=== PATIENT | female | born 2000 | race Caucasian/White ===

== ENCOUNTER 2022-05-17 01:44 | Emergency (ER) | payer SELFPAY ==
[2022-05-17 02:02] VITALS: BP 102/66; PULSE 84; RESP 18; TEMP 36.8; O2SAT 99; BMI 19.8
--- NOTE | 2022-05-17 02:42 | CRLHL7_ITS ---
For Patients: As a result of the Century Cures Act, medical imaging exams and procedure reports are released immediately into your electronic medical record. You may view this report before your referring provider. If you have questions, please contact your health care provider. INDICATION: Abdominal pain. COMPARISON: None available. TECHNIQUE: CT examination of the abdomen and pelvis was performed with the uneventful intravenous administration of 64 cc of Isovue 370 while 3 mm thick axial sections were obtained from the lung bases through the pubic symphysis. Oral contrast was not administered. Please note that all CT scans at this facility use dose modulation, iterative reconstruction, and/or weight-based dosing when appropriate to reduce radiation dose to as low as reasonably achievable. FINDINGS: In the abdomen, the liver, spleen, pancreas, and adrenals are normal in appearance. The kidneys are normal in appearance. The gallbladder is normal in appearance. The abdominal aorta is normal in caliber with no sign of dilatation. There is no sign of retroperitoneal mass or adenopathy. The stomach, loops of small bowel, and colon in the abdomen are normal in appearance. In the pelvis, the appendix is normal in appearance with no sign of inflammatory process. The loops of small bowel, colon, and rectum in the pelvis are normal in appearance. The uterus and adnexal regions are normal in appearance. There is a small amount of free fluid in the cul-de-sac, nonspecific. The urinary bladder is normal in appearance. There is no sign of pelvic or inguinal mass or adenopathy. There is no sign of free air or free fluid in the abdomen. There is no sign of free air or extraluminal air in the pelvis. The lung bases are clear. The osseous structures are normal in appearance for the patient`s age. IMPRESSION: Nothing seen to explain the patient`s abdominal pain. No sign of any inflammatory process involving the bowel. No sign of bowel distention. No sign of pancreatitis. Normal CT of the abdomen with contrast. CT of the pelvis shows a small amount of free fluid in the cul-de-sac, nonspecific. Please note that all CT scans at this facility use dose modulation, iterative reconstruction, and/or weight-based dosing when appropriate to reduce radiation dose to as low as reasonably achievable. Dictated by Juan José Garcia MD @ 05/17/2022 3:53:07 AM (Electronically Signed)
[2022-05-17 02:56] LABS: Basophils Absolute Auto 0.04 K/uL (0.00-0.30); Basophils Percent Auto 0.5 % (0.0-3.0); Eosinophils Absolute Auto 0.13 K/uL (0.00-0.50); Eosinophils Percent Auto 1.6 % (0.0-7.0); Hematocrit 30.1 % (33.0-51.0); Hemoglobin* 9.3 gm/dL (12.0-16.0); Immature Granulocytes Abs Auto 0.09 K/uL (0.00-0.30); Immature Granulocytes Pct Auto 1.1 %; Lymphocytes Absolute Auto 2.33 K/uL (0.90-2.90); Lymphocytes Percent Auto 28.6 % (20-44); Mean Corpuscular HGB Conc 31 gm/dL (32-36); Mean Corpuscular Hemoglobin 25 pg (26-34); Mean Corpuscular Volume 80 fL (80-100); Monocytes Percent Auto 7.5 % (0.0-11.0); Neutrophils Absolute Auto 4.96 K/uL (1.7-7.0); Neutrophils Percent Auto 60.7 % (42.0-72.0); Platelet Count* 287 K/uL (140-440); RDW Coefficient of Variation % 14.6 % (11.5-15.5); Red Blood Count 3.76 m/uL (4.00-5.20); White Blood Count* 8.16 K/uL (4.50-11.00)
[2022-05-17 02:59] LABS: Mono Screen* Negative (Negative)
[2022-05-17 03:00] LABS: Slide Review Reflex No
[2022-05-17 03:08] LABS: Albumin* 4.4 g/dL (3.3-5.0); Chloride* 107 mmol/L (96-114); Sodium* 139 mmol/L (135-149)
[2022-05-17 03:09] LABS: Potassium* 3.7 mmol/L (3.6-5.1)
[2022-05-17 03:11] LABS: Alkaline Phosphatase* 55 U/L (40-150); Aspartate Amino Transferase* 45 U/L (12-35); Bilirubin Total* 0.3 mg/dL (0.1-1.5); Blood Urea Nitrogen* 7 mg/dL (5-24); Carbon Dioxide* 22 mmol/L (20-32); Creatinine* 0.5 mg/dL (0.5-1.5); Est. Creatinine Clearance* 164.29; Estimated Glomerular Filt Rate 136 ml/min; Glucose* 100 mg/dL (60-115); Total Protein* 7.7 g/dL (6.0-8.3)
[2022-05-17 03:12] LABS: Alanine Aminotransferase* 44 U/L (4-35); Calcium* 8.5 mg/dL (8.4-10.6)
[2022-05-17 03:22] LABS: Appearance Urine Clear (Clear); Bilirubin Urine Negative (Negative); Blood Urine Negative (Negative); Color Urine Yellow (Yellow); Glucose Urine Negative (Negative); Ketones Urine Negative (Negative); Leukocyte Esterase Urine Negative (Negative); Nitrite Urine Negative (Negative); Protein Urine Negative (Negative); Urobilinogen Urine 0.2 (0.2-1.0); pH Urine 5.5 (5.0-8.5)
--- NOTE | 2022-05-17 03:48 | ED_ITS ---
HPI - General Adult General Date Seen: 05/17/22 Chief complaint: Abdominal Pain Stated complaint: chest and lower back pain. Time Seen by Provider: 05/17/22 02:01 Source: patient Mode of arrival: ambulatory Limitations: no limitations History of Present Illness HPI narrative: Patient is a 22-year-old female who recently finished a course of Omnicef for strep pharyngitis who presents with about 24 hours of flank and abdominal pain. This began in her right flank and radiated around to her right upper quadrant and is now more localized to her left upper quadrant. There has been some alli sea but no vomiting. No dysuria, urgency, frequency. She has had some loose stools for the past 24-48 hours. Nothing black or bloody. No acid reflux. She felt worse after eating some pasta this evening. No fevers or chills. She is just getting over her period. Related Data Home Medications Medication Instructions Recorded Confirmed No Known Home Medications 05/17/22 05/17/22 Allergies Allergy/AdvReac Type Severity Reaction Status Date / Time amoxicillin Allergy Intermediate Hives Verified 05/17/22 03:17 Review of Systems Narrative: Review of systems is outlined above otherwise noted to be negative. [facility] Medical History (Updated 05/17/22 @ 03:57 by Tanner Davis MD) Anxiety ?F41.9 - Anxiety disorder, unspecified (ICD-10) Depression ?F32.A - Depression, unspecified (ICD-10) Surgical History (Updated 05/17/22 @ 03:09 by John León RN) No significant past surgical history Social History Smoking Status: Never smoker Second hand tobacco smoke exposure: No How often do you have a drink containing alcohol: never How often do you have six or more drinks on one occasion: Never AUDIT-C Alcohol total score: 0 Non-prescribed substance use: denies use Exam Narrative: Exam Narrative: Vitals noted. HEENT: Conjunctiva clear. Tympanic membranes are pearly white bilaterally. Posterior pharynx is clear without erythema or exudate. Neck is supple without adenopathy, thyromegaly, carotid bruit. Lungs: Clear to auscultation in all veliz. No wheezes, rales, rhonchi. Heart: Regular rate and rhythm without murmur. Abdomen: Soft with no guarding, rigidity, rebound. Bowel sounds are normal. No palpable masses. There is very mild tenderness in the right lower quadrant and left upper quadrant. Extremities: No cyanosis or edema. Good distal pulses. Skin: No abnormalities noted of the exposed skin. Neurologic: Awake, alert, fully oriented. Neurologic exam is nonfocal. Const: Vital Signs, click to edit/add: Vital Signs - 24 hr 05/17/22 02:02 Temperature 98.2 F Pulse Rate [Right Pulse Oximeter] 84 Respiratory Rate 18 Blood Pressure [Ri ght Upper Arm] 102/66 Pulse Oximetry 99 Oxygen Delivery Me thod Room Air Course Course Hospital Course: Patient is seen and examined. Labs and CT of her abdomen and pelvis are ordered. She declines a need for pain medication. Reevaluation(s) Reevaluation #1: Her labs have all returned. Urinalysis is normal. Monospot negative. AST and ALT are minimally elevated. The remainder of her LFTs are normal. Basic metabolic panel is normal. CBC shows a hemoglobin of 9.3 with an MCV of 80 consistent with an iron deficiency anemia. She tells me that her periods are very heavy. She is not sexually active but she would be interested in OCPs to help light her menstrual flow. She can discuss that with Dr. Sampson. CT of the abdomen and pelvis is completely unremarkable. Vital Signs Vital signs: Initial Vital Signs Temperature 98.2 F 05/17/22 02:02 Temperature Source Temporal Artery Scan 05/17/22 02:02 Pulse Rate 84 05/17/22 02:02 Respiratory Rate 18 05/17/22 02:02 Blood Pressure 102/66 05/17/22 02:02 Blood Pressure Mean 78 05/17/22 02:02 Blood Pressure Position Sitting 05/17/22 02:02 Pulse Oximetry 99 05/17/22 02:02 Oxygen Delivery Method Room Air 05/17/22 02:02 Vital Signs Temperature 98.2 F 05/17/22 02:02 Pulse Rate 84 05/17/22 02:02 Respiratory Rate 18 05/17/22 02:02 Blood Pressure 102/66 05/17/22 02:02 Pulse Oximetry 99 05/17/22 02:02 Oxygen Delivery Method Room Air 05/17/22 02:02 Temperature 98.2 F 05/17/22 02:02 Pulse Rate 84 05/17/22 02:02 Respiratory Rate 18 05/17/22 02:02 Blood Pressure 102/66 05/17/22 02:02 Pulse Oximetry 99 05/17/22 02:02 Oxygen Delivery Method Room Air 05/17/22 02:02 Medical Decision Making Lab Data Labs: Lab Results 05/17/22 05/17/22 Range/Units 02:07 02:50 WBC 8.16 (4.50-11.00) K/uL RBC 3.76 L (4.00-5.20) m/uL Hgb 9.3 L (12.0-16.0) gm/dL Hct 30.1 L (33.0-51.0) % MCV 80 (80-100) fL MCH 25 L (26-34) pg MCHC 31 L (32-36) gm/dL RDW Coeff of Thomas 14.6 (11.5-15.5) % Plt Count 287 (140-440) K/uL Neut % (Auto) 60.7 (42.0-72.0) % Lymph % (Auto) 28.6 (20-44) % [place] % (Auto) 7.5 (0.0-11.0) % Eos % (Auto) 1.6 (0.0-7.0) % Baso % (Auto) 0.5 (0.0-3.0) % Neut # (Auto) 4.96 (1.7-7.0) K/uL Lymph # (Auto) 2.33 (0.90-2.90) K/uL Marion # (Auto) 0.60 (0.00-0.90) K/UL Eos # (Auto) 0.13 (0.00-0.50) K/uL Baso # (Auto) 0.04 (0.00-0.30) K/uL Sodium 139 (135-149) mmol/L Potassium 3.7 (3.6-5.1) mmol/L Chloride 107 (96-114) mmol/L Carbon Dioxide 22 (20-32) mmol/L BUN 7 (5-24) mg/dL Creatinine 0.5 (0.5-1.5) mg/dL Estimated Creat Clear 164.29 Estimated GFR 136 ml/min Glucose 100 (60-115) mg/dL Calcium 8.5 (8.4-10.6) mg/dL Total Bilirubin 0.3 (0.1-1.5) mg/dL Direct Bilirubin 0.0 (0.0-0.5) mg/dL AST 45 H (12-35) U/L ALT 44 H (4-35) U/L Alkaline Phosphatase 55 (40-150) U/L Total Protein 7.7 (6.0-8.3) g/dL Albumin 4.4 (3.3-5.0) g/dL Urine Color Yellow (Yellow) Urine Appearance Clear (Clear) Urine pH 5.5 (5.0-8.5) Ur Specific [place] 1.020 (1.000-1.030) Urine Protein Negative (Negative) Urine Glucose (UA) Negative (Negative) Urine Ketones Negative (Negative) Urine Blood Negative (Negative) Urine Nitrite Negative (Negative) Urine Bilirubin Negative (Negative) Urine Urobilinogen 0.2 (0.2-1.0) Ur Leukocyte Esterase Negative (Negative) Monoscreen Negative (Negative) Discharge Plan Discharge Clinical Impression: Iron deficiency anemia, Abdominal pain Patient Disposition: Home, Self-Care Condition: Stable Additional Instructions: Start taking rbcd-zog-yblzdin iron supplement. Follow-up with your PCP in one month to have that rechecked. Consider starting control pill to help lighten your menstrual flow. Use Tylenol for your abdominal pain. Follow a bland diet until the diarrhea resolves. If abdominal pain does not improve please follow-up in the clinic. Prescriptions: No Action No Known Home Medications Follow Up/Referrals: Danielle Sampson PA-C [Primary Care Provider] - Stand Alone Forms: [employer] Info Instructions
[2022-05-17 04:07] VITALS: BP 112/85; PULSE 79; RESP 18; TEMP 36.9; O2SAT 99
[2022-05-17 04:15] VITALS: BP 112/85; PULSE 79; RESP 18; TEMP 36.9
== END 2022-05-17 04:16 | disposition home or self-care (01) ==
PROVIDERS: Emergency Provider Family Medicine; PCP Physician Assistant
DX: R10.9 Unspecified abdominal pain (principal); D50.9 Iron deficiency anemia, unspecified
CPT/HCPCS: 36415; 74177; 80048; 80076; 81003; 85025; 86308; 99283; 99284; Q9967

== ENCOUNTER 2022-10-19 21:04 | Emergency (ER) | payer MEDICAID, SELFPAY ==
[2022-10-19 21:13] VITALS: BP 105/67; PULSE 80; RESP 18; TEMP 35.6; O2SAT 100; BMI 19.8
--- NOTE | 2022-10-19 21:36 | ED.GENADULT ---
HPI - General Adult General Chief complaint: Nausea/Vomiting Stated complaint: can't keep anything down Time Seen by Provider: 10/19/22 21:36 History of Present Illness HPI narrative: Pt 16.5 weeks . LMP 07/06/22. Pt c/ o vomiting, nausea, headache, and swollen gums since 10/14/22. Pt states yesterday was the first day in five days she didn't vomit, but now states she again can't keep anything down. Has not tested for COVID, states I would still leave my house . First . 22-year-old young woman presenting to the emergency department with vomiting in . One week nausea and vomiting. Some abdominal pain. History of headaches; does not sound as though migraines have been formally diagnosed. Mom with history of migraines. They have been treating with acetaminophen. No fever. No dysuria. No fever. No shortness of breath. No bleeding. Has not yet had 1st OB. Related Data Home Medications Medication Instructions Recorded Confirmed PNV #[id number] acid-omega3 PO 10/19/22 docosahexaenoic acid PO 10/19/22 Allergies Allergy/AdvReac Type Severity Reaction Status Date / Time amoxicillin Allergy Intermediate Hives Verified 10/19/22 21:20 Review of Systems Status of ROS: Reports: 6 or more systems reviewed and unremarkable except as noted in History and below [facility] Medical History Menorrhagia ?N92.0 - Excessive and frequent menstruation with regular cycle (ICD-10) Iron deficiency anemia ?D50.9 - Iron deficiency anemia, unspecified (ICD-10) Anxiety ?F41.9 - Anxiety disorder, unspecified (ICD-10) Depression ?F32.A - Depression, unspecified (ICD-10) Surgical History No significant past surgical history Social History Smoking Status: Former smoker Do you use any of these nicotine containing products: E-Cigarettes and Vaping Products Second hand tobacco smoke exposure: No How often do you have a drink containing alcohol: never How often do you have six or more drinks on one occasion: Never AUDIT-C Alcohol total score: 0 Non-prescribed substance use: denies use Exam Narrative: Exam Narrative: Tall. Pleasant. Seems uncomfortable. Breathing easily. Lungs are clear. Lips are little dry. Heart in regular rate and rhythm. Abdomen is soft. No flank pain Sore mid low abdomen. Places her hand often at the back of her neck as if uncomfortable. Const: Vital Signs, click to edit/add: Vital Signs - 24 hr 10/19/22 21:13 10/20/22 00:36 Temperature 96.0 F L Pulse Rate [Pulse Oximeter] 80 94 Respiratory Rate 18 16 Blood Pressure [Ri ght Upper Arm] 105/67 98/57 L Pulse Oximetry 100 100 Oxygen Delivery Me thod Room Air Room Air Documenting provider has reviewed patient's vital signs: yes Course Vital Signs Vital signs: Initial Vital Signs Temperature 96.0 F L 10/19/22 21:13 Temperature Source Temporal Artery Scan 10/19/22 21:13 Pulse Rate 80 10/19/22 21:13 Respiratory Rate 18 10/19/22 21:13 Blood Pressure 105/67 10/19/22 21:13 Blood Pressure Mean 79 10/19/22 21:13 Blood Pressure Position Sitting 10/19/22 21:13 Pulse Oximetry 100 10/19/22 21:13 Oxygen Delivery Method Room Air 10/19/22 21:13 Vital Signs Temperature 96.0 F L 10/19/22 21:13 Pulse Rate 80 10/19/22 21:13 Respiratory Rate 18 10/19/22 21:13 Blood Pressure 105/67 10/19/22 21:13 Pulse Oximetry 100 10/19/22 21:13 Oxygen Delivery Method Room Air 10/19/22 21:13 Temperature 96.0 F L 10/19/22 21:13 Pulse Rate 94 10/20/22 00:36 Respiratory Rate 16 10/20/22 00:36 Blood Pressure 98/57 L 10/20/22 00:36 Pulse Oximetry 100 10/20/22 00:36 Oxygen Delivery Method Room Air 10/20/22 00:36 Medical Decision Making MDM Narrative Medical decision making narrative: Ideally placed. Will be receiving IV hydration. Will try to treat her headache. Urinalysis. No particular exposures to infectious gastritis have been described. Presuming dehydration. Given Zofran and fluids. Improved but headache remain. Further treated with 4 mg of morphine after discussion. Further improvement in symptoms. [place] could apart. Urinalysis with findings consistent of infection. At least more so than I typically would see in . I will be treating for this as well. Pending urine culture. See patient discharge plan Lab Data Lab results reviewed: Yes I reviewed the patient's lab results Labs: Lab Results 10/19/22 Range/Units 22:04 Urine Color Yellow (Yellow) Urine Appearance Cloudy A (Clear) Urine pH 7.0 (5.0-8.5) Ur Specific [place] 1.020 (1.000-1.030) Urine Protein Negative (Negative) Urine Glucose (UA) Negative (Negative) Urine Ketones Negative (Negative) Urine Blood Trace-intact A (Negative) Urine Nitrite Negative (Negative) Urine Bilirubin Negative (Negative) Urine Urobilinogen 0.2 (0.2-1.0) Ur Leukocyte Esterase 1+ A (Negative) Urine RBC 0-2 (0-2) Urine WBC 25-50 A (0-5) Ur Squamous Epith Cells Moderate A (None-Few) Amorphous Sediment Few A (None) Urine Bacteria Moderate A (None) Discharge Plan Discharge Clinical Impression: UTI (urinary tract infection), Headache, Vomiting during , Dehydration Patient Disposition: Home w/ Parent or Adult Condition: Improved Additional Instructions: Really focus on hydration. A urine culture will be pending here for confirmation. Zofran and cephalexin from [facility] Otherwise follow-up appointment as scheduled. Prescriptions: No Action docosahexaenoic acid [ DHA] PO PNV #[id number] acid-omega3 PO Follow Up/Referrals: Danielle Sampson PA-C [Primary Care Provider] - Stand Alone Forms: [facility] Info Instructions
[2022-10-19] MEDS: ONDANSETRON 2 MG/ML inj 4 MG IVP (21:45)
[2022-10-19] MEDS: 0.9 % SODIUM CHLORIDE 1000 ml 1,000 ML IV (21:45)
[2022-10-19 22:28] LABS: Appearance Urine Cloudy (Clear); Bilirubin Urine Negative (Negative); Blood Urine Trace-intact (Negative); Color Urine Yellow (Yellow); Glucose Urine Negative (Negative); Ketones Urine Negative (Negative); Leukocyte Esterase Urine 1+ (Negative); Nitrite Urine Negative (Negative); Protein Urine Negative (Negative); Urobilinogen Urine 0.2 (0.2-1.0)
[2022-10-19 22:29] LABS: Amorphous Sediment Urine Few; Bacteria Urine Moderate; RBC Urine 0-2 (0-2); Squamous Epithelial Cell Urine Moderate (None-Few); WBC Urine 25-50 (0-5)
[2022-10-20] MEDS: MORPHINE 4 MG/ML INJ IVP (00:33)
[2022-10-20 00:36] VITALS: BP 98/57; PULSE 94; RESP 16; O2SAT 100
== END 2022-10-20 00:54 | disposition home or self-care (01) ==
PROVIDERS: Emergency Provider Family Medicine; PCP Physician Assistant
DX: O23.41 Unspecified infection of urinary tract in pregnancy, first trimester (principal); O21.9 Vomiting of pregnancy, unspecified; N39.0 Urinary tract infection, site not specified; E86.0 Dehydration; R51.9 Headache, unspecified
CPT/HCPCS: 81001; 87086; 96361; 96374; 96375; 99284; J2270; J2405; J7030

== ENCOUNTER 2022-11-11 12:08 | Outpatient (CLI) | payer MEDICAID, SELFPAY ==
--- NOTE | 2022-11-11 12:15 | CRLHL7_ITS ---
For Patients: As a result of the Century Cures Act, medical imaging exams and procedure reports are released immediately into your electronic medical record. You may view this report before your referring provider. If you have questions, please contact your health care provider. INDICATION: First trimester scan, establish dates. COMPARISON: None. TECHNIQUE: Real-time santiago-scale imaging of the pelvis was performed. FINDINGS: A single living intrauterine . heart rate 157 beats per minute. Vertex position. Cervix closed measuring 3.2 cm. Placenta anterior. BPD 88th percentile. HC 69th percentile. AC 83rd percentile. FL 58th percentile. IMPRESSION: Single living intrauterine with sonographic gestational age 18 weeks 4 days and sonographic due date 04/10/2023. Dictated by Tanner Owens MD @ 11/11/2022 3:20:36 PM (Electronically Signed)
== END 2022-11-11 12:09 | disposition home or self-care (01) ==
LOC: US 12:09
PROVIDERS: Visit Provider Advanced Practice Midwife
DX: Z34.92 Encounter for supervision of normal pregnancy, unspecified, second trimester (principal); Z3A.18 18 weeks gestation of pregnancy
CPT/HCPCS: 76815; 86703; 86706; 86803; 86850; 86900; 86901; 87086; 87340

== ENCOUNTER 2022-11-11 13:10 | Outpatient (CLI) | payer MEDICAID, SELFPAY | END 2022-11-11 13:11 | disposition home or self-care (01) | PROVIDERS: Visit Provider Advanced Practice Midwife | DX: Z34.92 Encounter for supervision of normal pregnancy, unspecified, second trimester (principal); Z3A.18 18 weeks gestation of pregnancy | CPT/HCPCS: 76815; 86592; 86703; 86704; 86706; 86762; 86787; 86803; 86850; 86900; 86901; 87086; 87340 ==

== ENCOUNTER 2022-11-25 12:55 | Outpatient (CLI) | payer MEDICAID, SELFPAY ==
--- NOTE | 2022-11-25 13:00 | CRLHL7_ITS ---
For Patients: As a result of the Century Cures Act, medical imaging exams and procedure reports are released immediately into your electronic medical record. You may view this report before your referring provider. If you have questions, please contact your health care provider. INDICATION: Evaluate anatomy. COMPARISON: 11/11/2022 TECHNIQUE: Real time santiago scale imaging of the fetus was performed as well as color Doppler analysis of the umbilical vessels. FINDINGS: Sonographic imaging demonstrates a single living intrauterine gestation. Fetus demonstrates a regular cardiac rate of 145 beats per minute. Fetus has a vertex position. The placenta lies anteriorly without evidence of placenta previa. The edge of the placenta is located 12.7 cm from the internal cervical os. Amniotic fluid volume appears normal. Single deepest vertical pocket: 3.8 cm. The cervix is closed and measures 3.5 cm in length. The composite ultrasound gestational age is calculated at 20 weeks 4 days with an estimated sonographic due date of 04/10/2023. The estimated weight is 343 grams which lies at the 44th %. The following biometric measurements were obtained: Biparietal diameter: 5.0 cm/21 weeks 0 days 77th% Head circumference: 17.9 cm/20 weeks 2 days 43rd% Abdominal circumference: 15.2 cm/20 weeks 3 days 47th% Femur length: 3.2 cm/20 weeks 0 days 33rd% The HC/AC ratio measures: 1.18 range (1.07-1.25) On anatomic survey, there is a normal appearance of the cerebral ventricles, cavum septi pellucidi, cisterna magna and cerebellum. The nose, lips, and facial profile appear normal. The cervical, thoracic and lumbar spine are well visualized and appear normal. There is a normal four-chamber heart view and the left and right ventricular outflow tracts appear normal. The diaphragm and stomach appear normal. The kidneys and bladder also appear normal. There is a normal three-vessel cord. The cord insertion site is located 1.6 cm from the placental edge. The four extremities appear normal. IMPRESSION: Concordance of clinical and sonographic dating. No intrinsic abnormalities noted on anatomic survey. Marginal placental cord insertion 1.6 cm from the placental edge. Dictated by Tanner Owens MD @ 11/27/2022 6:17:32 AM (Electronically Signed)
== END 2022-11-25 12:56 | disposition home or self-care (01) ==
LOC: US 12:57
PROVIDERS: Visit Provider Advanced Practice Midwife
DX: Z36.89 Encounter for other specified antenatal screening (principal); Z34.92 Encounter for supervision of normal pregnancy, unspecified, second trimester; Z3A.20 20 weeks gestation of pregnancy
CPT/HCPCS: 76805

== ENCOUNTER 2023-01-20 11:10 | Outpatient (CLI) | payer MEDICAID, SELFPAY | END 2023-01-20 11:11 | disposition home or self-care (01) | PROVIDERS: Visit Provider Advanced Practice Midwife | DX: O99.019 Anemia complicating pregnancy, unspecified trimester (principal) | CPT/HCPCS: 82728; 86592; 86850 ==

== ENCOUNTER 2023-02-07 10:00 | Outpatient (RCR) | payer MEDICAID, SELFPAY ==
--- NOTE | 2023-01-24 13:24 | URNOTE ---
Per [facility] on [facility] website, prior authorization is not required for Martin ([id number]).
[2023-01-29 11:36] VITALS: BP 100/51; PULSE 114; RESP 16; TEMP 36.7; O2SAT 98
[2023-01-29] MEDS: SODIUM CHLORIDE 0.9 % (FLUSH) 10 ML SYRINGE IVF (12:00)
[2023-01-29] MEDS: 0.9 % SODIUM CHLORIDE 250 ml IV (12:00)
[2023-01-29] MEDS: IRON SUCROSE COMPLEX 200 MG in 0.9 % SODIUM CHLORIDE 100 ml 440 MG IVPB (12:30)
[2023-01-29 12:49] VITALS: BP 89/59; PULSE 96; RESP 16; TEMP 36.4; O2SAT 96
[2023-01-29 13:00] VITALS: BP 93/59
[2023-01-31 14:25] VITALS: BP 96/63; PULSE 104; RESP 16; TEMP 36.9; O2SAT 97
[2023-01-31] MEDS: IRON SUCROSE COMPLEX 200 MG in 0.9 % SODIUM CHLORIDE 100 ml 440 MG IVPB (14:55)
[2023-01-31 15:15] VITALS: BP 94/65; PULSE 89; RESP 16; TEMP 36.8; O2SAT 98
[2023-01-31] MEDS: 0.9 % SODIUM CHLORIDE 250 ml IV (15:27)
[2023-01-31 15:45] VITALS: BP 95/67; PULSE 88; RESP 18; TEMP 36.7; O2SAT 98
[2023-02-03 11:26] VITALS: BP 93/62; PULSE 81; RESP 16; TEMP 36.2
[2023-02-03] MEDS: SODIUM CHLORIDE 0.9 % (FLUSH) 10 ML SYRINGE IVF (11:44)
[2023-02-03] MEDS: IRON SUCROSE COMPLEX 200 MG in 0.9 % SODIUM CHLORIDE 100 ml 440 MG IVPB (11:44)
[2023-02-03] MEDS: 0.9 % SODIUM CHLORIDE 250 ml IV (11:44)
[2023-02-05 08:05] VITALS: BP 104/69; PULSE 100; RESP 16; TEMP 36.4; O2SAT 100
[2023-02-05] MEDS: IRON SUCROSE COMPLEX 200 MG in 0.9 % SODIUM CHLORIDE 100 ml 440 MG IVPB (08:25)
[2023-02-05] MEDS: SODIUM CHLORIDE 0.9 % (FLUSH) 10 ML SYRINGE IVF (08:25)
[2023-02-05] MEDS: 0.9 % SODIUM CHLORIDE 250 ml IV (08:25)
[2023-02-07 10:11] VITALS: BP 99/67; PULSE 86; RESP 16; TEMP 36.3; O2SAT 100
[2023-02-07] MEDS: IRON SUCROSE COMPLEX 200 MG in 0.9 % SODIUM CHLORIDE 100 ml 440 MG IVPB (10:35)
[2023-02-07] MEDS: 0.9 % SODIUM CHLORIDE 250 ml IV (10:35)
[2023-02-07 10:53] VITALS: BP 96/60; PULSE 86; RESP 16; TEMP 36.8; O2SAT 100
[2023-02-07 11:25] VITALS: BP 104/66; PULSE 93; RESP 16; TEMP 36.7; O2SAT 98
== END 2023-07-28 23:59 | disposition home or self-care (01) ==
LOC: CCIC 10:00
PROVIDERS: Visit Provider Clinical Nurse Specialist
DX: O99.019 Anemia complicating pregnancy, unspecified trimester (principal)
CPT/HCPCS: 96365; 96374; J1756; J7050

== ENCOUNTER 2023-02-18 15:00 | Outpatient (CLI) | payer BC, SELFPAY ==
[2023-02-18] VITALS (7 sets, daily range): BP systolic 90–99; BP diastolic 50–62; PULSE 74–109; RESP 16–22; TEMP 36.6–36.9; O2SAT 97–100; BMI 23.1
--- NOTE | 2023-02-18 17:09 | ED.GENADULT ---
HPI - General Adult General Date Seen: 02/18/23 Chief complaint: Abdominal Pain Stated complaint: Lower abdominal pain Time Seen by Provider: 02/18/23 17:06 History of Present Illness HPI narrative: 22-year-old female with past medical history of anxiety, depression, currently . She is 32 weeks . She has heard from the Obstetrics Clinic to the ER to evaluate for abdominal pain and possible appendicitis. According to the patient she has been doing pretty well with her . She is nervous about having the baby come. She does not feel ready. She notes that she has been having episodic episodes of abdominal pain almost every day for the past couple of weeks. She had been assuming they are probably [place] contractions. She began having pain during her abdominal exam in the licensed nurse practitioner office today. Today's pain is different than before because it has lasted from 2:00 a.m. until 5:00 a.m.. Her previous episodes have lasted maybe 20 minutes per each episode. The pain does come and go today. It is more on the right than on the left. She notes that when someone pushes on her left abdomen it hurts a lot on the right. She is not feverish or chilled. She is not nauseous. No urinary trouble. No vaginal bleeding. No vaginal discharge. No vaginal fluid leakage. She is not having any low pelvic pain. She is able to feel her baby kicking normally. She has been constipated for the past 2 or 3 days. Per clinic notes from the nurse licensed nurse practitioner who saw her today 02/18/2023 Pt feeling good denies issues. Concerns: denies although admits to some anxiety about not being ready for baby. Bleeding/abnormal discharge: denies. Reviewed: labor pain management, hand expression and perineal massage. PHQ-9 [8] and WILLIAM-7 [11]. Hemoglobin next visit. Anxiety is a bit worse. She feels these are situational stressors of not having things ready for baby. She is declining any interventions today, feels things will get better. She has a very tender abdomen with palpation today. Notes some constipation but has had this abdominal pain on right side off and on for maybe the last two weeks. Denies fever. After palpating she was tearful and felt the pain was worse than before. Pain when getting up from a lying position off table as well. Sent to ER for further evaluation Related Data Home Medications Medication Instructions Recorded Confirmed docosahexaenoic acid 2 cap PO DAILY 10/19/22 02/18/23 ferrous sulfate 325 mg (65 mg 325 mg PO Q OTHER DAY 11/11/22 02/18/23 iron) tablet,delayed release Previous Rx's Medication Instructions Recorded metoclopramide HCl 10 mg tablet 10 mg PO Q6H PRN nausea and 10/24/22 (Reglan) vomiting #30 tabs Allergies Allergy/AdvReac Type Severity Reaction Status Date / Time amoxicillin Allergy Intermediate Hives Verified 02/18/23 21:41 [facility] Medical History Anemia ?D64.9 - Anemia, unspecified (ICD-10) Menorrhagia ?N92.0 - Excessive and frequent menstruation with regular cycle (ICD-10) Iron deficiency anemia ?D50.9 - Iron deficiency anemia, unspecified (ICD-10) Anxiety ?F41.9 - Anxiety disorder, unspecified (ICD-10) Depression ?F32.A - Depression, unspecified (ICD-10) Surgical History No significant past surgical history Social History Narrative: SOCIAL? ? Education: associate's? ? Work: unemployed at this time, looking? ? Partner: Terrell? not , not in a relationship ? Lives with: mother and father? ? Pets: dog? ? Abuse: Denies past Safe at home with current partner ? ? ? Special Diet: Denies? ? Ok with a blood transfusion: yes? ? Culture or samaritan beliefs: denies? What is your current living situation?: I presently have a place to live In the past 12 months, utilities in danger of being shut off: no In past 12 months, lack of transportation kept you from medical appts, meetings, work, or getting things needed for daily living: no How hard is it for you to pay for the very basics like food, housing, medical care, and heating: not applicable In the past 12 mos, have been you worried that your food would run out before you had money to buy more?: never true In the past 12 mos, the food you bought just didn't last and you didn't have money to buy more?: never true Smoking Status: Former smoker Do you use any of these nicotine containing products: E-Cigarettes and Vaping Products Second hand tobacco smoke exposure: No How often do you have a drink containing alcohol: never How often do you have six or more drinks on one occasion: Never AUDIT-C Alcohol total score: 0 Non-prescribed substance use: denies use How often does anyone, including family, friends and others, physically hurt you: never How often does anyone, including family, friends and others, insult or talk down to you: never How often does anyone, including family, friends and others, threaten you with harm: never How often does anyone, including family, friends and others, scream or curse at you: never Little interest or pleasure in doing things: several days Feeling down, depressed, or hopeless: several days Exam Narrative: Exam Narrative: Constitutional: Appears well-developed and well-nourished. Alert. Conversant. Non toxic. HENT: Head: Atraumatic. Nose: Nose normal. Mouth/Throat: Oral mucosa is clear and moist. no trismus. Pharynx normal. Tonsils symmetric. No tonsillar enlargement, erythema, or exudate. Eyes: Conjunctivae normal. EOM normal. Pupils equal, round, and reactive to light. No scleral icterus. Neck: Normal range of motion. Neck supple. No tracheal deviation present. Cardiovascular: Normal rate, regular rhythm. No gallop. No friction rub. No murmur heard. Symmetric radial artery pulses Pulmonary/Chest: Effort normal. No stridor. No respiratory distress. No wheezes. No rales. No rhonchi . No tenderness. Abdominal: Soft. Bowel sounds normal. No distension. Gravid uterus with fundus well above the umbilicus consistent with 32 week dates. Right mid and right lower quadrant tenderness. Patient winces with palpation of her left lower quadrant and says it triggers pain on the right. Positive Rovsing sign. No rebound. No guarding. No CVA tenderness. Musculoskeletal: RUE: Normal range of motion. No tenderness. No deformity LUE: Normal range of motion. No tenderness. No deformity RLE: Normal range of motion. No edema. No tenderness. No deformity LLE: Normal range of motion. No edema. No tenderness. No deformity Neurological: Alert and oriented to person, place, and time. Normal strength. CN II-VII intact. No sensory deficit. GCS eye subscore is 4. GCS verbal subscore is 5. GCS motor subscore is 6. Normal coordination Skin: Skin is warm and dry. No rash noted. No pallor. Normal capillary refill. Psychiatric: Normal mood. Normal affect. Const: Vital Signs, click to edit/add: Vital Signs - 24 hr 02/18/23 15:14 02/18/23 19:00 02/18/23 19:35 Temperature 97.8 F Pulse Rate Pulse Rate [Pulse Oximeter] 109 H 76 Respiratory Rate 22 18 Blood Pressure Blood Pressure [Ri ght Upper Arm] 95/60 90/50 L Pulse Oximetry 97 99 99 Oxygen Delivery Me thod Room Air Room Air 02/18/23 20:06 02/18/23 20:07 02/18/23 21:36 Temperature 97.8 F Pulse Rate 84 Pulse Rate [Pulse Oximeter] 74 74 Respiratory Rate 16 17 17 Blood Pressure 99/56 L Blood Pressure [Ri ght Upper Arm] 91/56 L 91/56 L Pulse Oximetry 99 100 Oxygen Delivery Me thod Room Air 02/18/23 21:36 02/18/23 21:39 Temperature 98.4 F Pulse Rate 80 Pulse Rate [Pulse Oximeter] Respiratory Rate 16 Blood Pressure 96/62 Blood Pressure [Ri ght Upper Arm] Pulse Oximetry 100 Oxygen Delivery Me thod Course Course ED Course: Recheck-mother at bedside. Patient still declines pain meds. Still endorses intermittent waves of pain affecting her central and right abdomen. Really no pain localizing to the right upper quadrant her gallbladder. Repeat exam reveals right-sided tenderness> left-sided tenderness. Palpation on the left still hurts on the right. Most tender in the right mid abdomen and right lower quadrant. Less tender in the right upper quadrant. No hepatomegaly. No Cruz sign. No CVA tenderness. Vital Signs Vital signs: Initial Vital Signs Temperature 97.8 F 02/18/23 15:14 Temperature Source Temporal Artery Scan 02/18/23 15:14 Pulse Rate 109 H 02/18/23 15:14 Respiratory Rate 22 02/18/23 15:14 Blood Pressure 95/60 02/18/23 15:14 Blood Pressure Mean 71 02/18/23 15:14 Blood Pressure Position Sitting 02/18/23 15:14 Pulse Oximetry 97 02/18/23 15:14 Oxygen Delivery Method Room Air 02/18/23 15:14 Vital Signs Temperature 97.8 F 02/18/23 15:14 Pulse Rate 109 H 02/18/23 15:14 Respiratory Rate 22 02/18/23 15:14 Blood Pressure 95/60 02/18/23 15:14 Pulse Oximetry 97 02/18/23 15:14 Oxygen Delivery Method Room Air 02/18/23 15:14 Temperature 98.4 F 02/18/23 21:36 Pulse Rate 80 02/18/23 21:39 Respiratory Rate 16 02/18/23 21:36 Blood Pressure 96/62 02/18/23 21:39 Pulse Oximetry 100 02/18/23 21:36 Oxygen Delivery Method Room Air 02/18/23 20:07 Medications Administered Medications: Discontinued Medications Generic Name Dose Route Start Last Admin Trade Name Freq PRN Reason Stop Dose Admin Sodium Chloride 1,000 mls @ 1,000 mls/hr 02/18/23 19:08 02/18/23 21:30 0.9 % Sodium Chloride 1000 Ml IV 02/18/23 20:07 Infused .Q1H JOSEFINA Infusion Medical Decision Making MDM Narrative Medical decision making narrative: 22-year-old female who is currently 32 weeks is referred to the ER today from the Ob/licensed nurse practitioner Clinic for evaluation of abdominal pain and concern for appendicitis. Patient does report intermittent brief episodes of abdominal pain off and on for the past couple of weeks but today's episode of pain is more severe and more persistent, lasting about 3 hours prior to my evaluation, been any of her previous episodes. Report from the OB Clinic that they were concerned about appendicitis due to severity of pain. Consider possible early appendicitis but today's pain actually only began about 3 hours prior to arrival. Pain is located in the central abdomen around the uterus and more to the right than on the left but she does have a positive Rovsing sign with left-sided palpation triggering right-sided pain. She is not febrile. No migratory pain. No anorexia. No vomiting. Would be an atypical presentation for appendicitis but since she is 3rd trimester , there is concern for appendicitis. Laboratory workup is reassuring. MR imaging was obtained to minimize radiation exposure to the fetus as well as to the mother. MRI does not show any definitive identification of the appendix but also no evidence for any inflammatory change in the right abdomen to suggest ancillary signs of appendicitis. No evidence for perforation. Will MRI suggest there is possibly a gallstone within the gallbladder without any evidence for gallbladder inflammation. For laboratory workup shows normal LFTs, normal lipase, normal white count. Gallbladder ultrasound is obtained to double check for possible gallbladder pathology and is read as essentially normal without any stones, wall thickening, biliary tree dilatation, or other abnormality. Unclear if the MRI is a false positive or if there may be a small gallstone not seen on ultrasound imaging. In any case, pain does not really localize to the right upper quadrant and there is no evidence for acute cholecystitis requiring hospitalization for antibiotics or immediate surgery. Urinalysis shows 5-10 white blood cells per high-power field but also squamous epithelial cells and I think indicates contamination rather than true UTI. Would need a proper clean-catch urine for to truly assess for asymptomatic bacteriuria. Would hold off on any antibiotics prescribed to the ER this time. Really the pain has been coming and going in waves for the past 3 hours and would be more concerning for possible uterine activity or early labor. Without any clear evidence for cholecystitis, appendicitis, colitis, bowel obstruction, diverticulitis, pancreatitis, hepatitis, UTI, kidney stone, I think patient does need evaluation by Obstetrics. Discussed with Dr. Cope. Patient will go to the mother baby floor for uterine and monitoring and further evaluation. Will hold off on pelvic ultrasound in the absence of any definitive cramping, vaginal bleeding, or definitive pre term labor. Lab Data Labs: Lab Results 02/18/23 02/18/23 Range/Units 18:05 18:21 WBC 9.27 (4.50-11.00) K/uL RBC 3.58 L (4.00-5.20) m/uL Hgb 10.4 L (12.0-16.0) gm/dL Hct 32.1 L (33.0-51.0) % MCV 90 (80-100) fL MCH 29 (26-34) pg MCHC 32 (32-36) gm/dL RDW Coeff of Thomas 14.4 (11.5-15.5) % Plt Count 187 (140-440) K/uL Neut % (Auto) 68.6 (42.0-72.0) % Lymph % (Auto) 16.6 L (20-44) % Mineral % (Auto) 9.3 (0.0-11.0) % Eos % (Auto) 0.9 (0.0-7.0) % Baso % (Auto) 0.3 (0.0-3.0) % Neut # (Auto) 6.36 (1.7-7.0) K/uL Lymph # (Auto) 1.50 (0.90-2.90) K/uL Mineral # (Auto) 0.90 (0.00-0.90) K/UL Eos # (Auto) 0.08 (0.00-0.50) K/uL Baso # (Auto) 0.03 (0.00-0.30) K/uL Abs Immat Gran (auto) 0.40 H (0.00-0.30) K/uL Imm/Tot Granulo (auto) 4.3 % Diff Slide Review Acceptable Review (Acceptable) Sodium 136 (135-149) mmol/L Potassium 3.6 (3.6-5.1) mmol/L Chloride 108 (96-114) mmol/L Carbon Dioxide 19 L (20-32) mmol/L Anion Gap 9 (7-15) mEq/L BUN 4 L (5-24) mg/dL Creatinine 0.4 L (0.5-1.5) mg/dL Estimated Creat Clear 222.54 Estimated GFR 143 ml/min Glucose 75 (60-115) mg/dL Calcium 8.3 L (8.4-10.6) mg/dL Total Bilirubin 0.4 (0.1-1.5) mg/dL AST 28 (12-35) U/L ALT 19 (4-35) U/L Alkaline Phosphatase 113 (40-150) U/L Total Protein 6.7 (6.0-8.3) g/dL Albumin 3.7 (3.3-5.0) g/dL Lipase 44 (23-300) U/L Urine Color Yellow (Yellow) Urine Appearance Clear (Clear) Urine pH 7.5 (5.0-8.5) Ur Specific Williamson 1.015 (1.000-1.030) Urine Protein Negative (Negative) Urine Glucose (UA) Negative (Negative) Urine Ketones 1+ A (Negative) Urine Blood Trace-intact A (Negative) Urine Nitrite Negative (Negative) Urine Bilirubin Negative (Negative) Urine Urobilinogen 0.2 (0.2-1.0) Ur Leukocyte Esterase 1+ A (Negative) Urine RBC 0-2 (0-2) Urine WBC 5-10 A (0-5) Ur Squamous Epith Cells Moderate A (None-Few) Urine Bacteria Moderate A (None) Imaging Data MRI abdomen: Attestation: I have reviewed the pertinent imaging results. Radiologist's impression: Impression was faxed through [employer]. Also discussed with the radiologist, Dr. Espinal by phone. Impression: The appendix is not definitively visualized however there is NO suspicious tubular structure in the right lower quadrant. Of note on the original fax it reads there is mil suspicious tubular structure in the right lower quadrant. This was a dictation error. Dr. Espinal meant to say that there is no suspicious tubular structure. No significant free fluid or inflammatory changes. Filling defect noted within the gallbladder lumen likely a stone. No evidence of cholecystitis. Grossly, the liver, spleen, pancreas, and adrenal glands appear normal. No hydronephrosis or hydroureter. Bladder is unremarkable. structures are grossly unremarkable. Full report to follow. Dictated by Nila Espinal MD at 02/18/2023 7:20 p.m. Gallbladder ultrasound: Attestation: I have reviewed the pertinent imaging results. Radiologist's impression: FINDINGS: Gallbladder: No stones or sludge. Normal wall thickness. No pericholecystic fluid. Negative sonographic Cruz sign. Common bile duct: 3-4 mm. IMPRESSION: No cholelithiasis or biliary dilatation. Discharge Plan Discharge Clinical Impression: Abdominal pain affecting Patient Disposition: Home, Self-Care Condition: Stable
--- NOTE | 2023-02-18 17:26 | CRLHL7_ITS ---
For Patients: As a result of the Century Cures Act, medical imaging exams and procedure reports are released immediately into your electronic medical record. You may view this report before your referring provider. If you have questions, please contact your health care provider. Indication: Right lower quadrant abdominal pain. Technique: MRI of the abdomen and pelvis without intravenous gadolinium. Three plane localizer, 3 plane SSFP, axial T1 weighted in and out of phase, 3 plane T2 weighted haste, 3 plane T2 weighted haste with fat suppression. No intravenous gadolinium administered. Comparison: CT of the abdomen and pelvis, 05/17/2022. Obstetrical ultrasound, 11/25/2022. Findings: There is no maternal hydronephrosis or perinephric fluid collection. No solid renal mass. Spleen size is normal. No inflammatory changes adjacent to the gallbladder. No right upper quadrant inflammatory changes. Liver morphology is non cirrhotic. There is no abdominal or pelvic lymphadenopathy. There is no retroplacental fluid collection or mass. Single intrauterine fetus. Presentation is cephalic. There is no evidence for placenta previa. The cervix is closed. There is no prolapse of parts or funneling. The appendix is not identified. There are no secondary signs for acute appendicitis. No right lower quadrant fat stranding, edema, or mural thickening of the cecum or terminal ileum. The biliary tree is normal in caliber. The common bile duct measures 3 millimeters. Normal caliber main pancreatic duct. See series 8, image 20. Impression: 1. The appendix is not identified. 2. There are no secondary signs for acute appendicitis. 3. There are no major discrepancies between this report and the preliminary report submitted by [facility], 02/18/2023, 1920 hours. Dictated by Donaldo Miranda MD @ 02/27/2023 8:15:51 AM (Electronically Signed)
[2023-02-18 18:17] LABS: Basophils Absolute Auto 0.03 K/uL (0.00-0.30); Basophils Percent Auto 0.3 % (0.0-3.0); Eosinophils Absolute Auto 0.08 K/uL (0.00-0.50); Eosinophils Percent Auto 0.9 % (0.0-7.0); Hematocrit 32.1 % (33.0-51.0); Hemoglobin* 10.4 gm/dL (12.0-16.0); Immature Granulocytes Pct Auto 4.3 %; Lymphocytes Percent Auto 16.6 % (20-44); Mean Corpuscular HGB Conc 32 gm/dL (32-36); Mean Corpuscular Hemoglobin 29 pg (26-34); Mean Corpuscular Volume 90 fL (80-100); Monocytes Percent Auto 9.3 % (0.0-11.0); Neutrophils Absolute Auto 6.36 K/uL (1.7-7.0); Neutrophils Percent Auto 68.6 % (42.0-72.0); Platelet Count* 187 K/uL (140-440); RDW Coefficient of Variation % 14.4 % (11.5-15.5); Red Blood Count 3.58 m/uL (4.00-5.20); White Blood Count* 9.27 K/uL (4.50-11.00)
[2023-02-18 18:19] LABS: Slide Review Reflex Yes
[2023-02-18 18:29] LABS: Albumin* 3.7 g/dL (3.3-5.0); Chloride* 108 mmol/L (96-114); Potassium* 3.6 mmol/L (3.6-5.1); Sodium* 136 mmol/L (135-149)
[2023-02-18 18:29] LABS: Appearance Urine Clear (Clear); Bilirubin Urine Negative (Negative); Blood Urine Trace-intact (Negative); Color Urine Yellow (Yellow); Glucose Urine Negative (Negative); Ketones Urine 1+ (Negative); Leukocyte Esterase Urine 1+ (Negative); Nitrite Urine Negative (Negative); Protein Urine Negative (Negative); Specific Gravity Urine 1.015 (1.000-1.030); Urobilinogen Urine 0.2 (0.2-1.0); pH Urine 7.5 (5.0-8.5)
[2023-02-18 18:31] LABS: Creatinine* 0.4 mg/dL (0.5-1.5); Est. Creatinine Clearance* 222.54; Estimated Glomerular Filt Rate 143 ml/min
[2023-02-18 18:32] LABS: Alanine Aminotransferase* 19 U/L (4-35); Alkaline Phosphatase* 113 U/L (40-150); Anion Gap 9 mEq/L (7-15); Aspartate Amino Transferase* 28 U/L (12-35); Bilirubin Total* 0.4 mg/dL (0.1-1.5); Blood Urea Nitrogen* 4 mg/dL (5-24); Calcium* 8.3 mg/dL (8.4-10.6); Carbon Dioxide* 19 mmol/L (20-32); Glucose* 75 mg/dL (60-115); Lipase* 44 U/L (23-300); Total Protein* 6.7 g/dL (6.0-8.3)
[2023-02-18] MEDS: 0.9 % SODIUM CHLORIDE 1000 ml 1,000 ML IV (19:33)
--- NOTE | 2023-02-18 19:47 | CRLHL7_ITS ---
For Patients: As a result of the Cures Act, medical imaging exams and procedure reports are released immediately into your electronic medical record. You may view this report before your referring provider. If you have questions, please contact your health care provider. INDICATION: Abdominal pain. Thirty-two weeks . Possible cholelithiasis on earlier MRI. TECHNIQUE: Ultrasound abdomen limited. COMPARISON: Abdominal MRI earlier on 02/18/2023. CT study dated 05/17/2022. FINDINGS: Gallbladder: No stones or sludge. Normal wall thickness. No pericholecystic fluid. Negative sonographic Cruz sign. Common bile duct: 3-4 mm. IMPRESSION: No cholelithiasis or biliary dilatation. Dictated by James Montalvo MD @ 02/18/2023 9:45:05 PM Dictated by: James Montalvo MD @ 02/18/2023 21:45:09 (Electronically Signed)
--- NOTE | 2023-02-18 20:17 | P.GYNCN_ITS ---
D[employer]ICATED LOCAL TR[employer]IVER - CN: HPI Data of Consult Date Seen: 02/18/23 Patient: [facility] Patient Consult date: 02/18/23 Primary Care Provider: Not a Local Provider Consult Narrative Narrative: Jocelyn Healy is a 22 year old female at 32 weeks, 3 days gestation By LMP consistent with 1st trimester ultrasound, CUCO 04/12/2023, who is seen by kind request of Dr. Davidson Davis for evaluation of abdominal pain in . She presented for routine visit today with Arlin Umanzor CNM, and was found to have a markedly tender right lower quadrant on exam. She was sent to the ER for evaluation for appendicitis. She does report constipation. She denies any contractions, bleeding, or loss of fluid. At this moment, she denies any severe pain, but does report some periumbilical pain. She reports constipation. She denies any urinary tract infections in recent history. Of note, she has recently received IV iron for iron deficiency anemia. OB PROBLEM LIST: 1. Anemia prepregnancy- takes iron EOD Hgb 10.0 at 28 weeks, fatigued and dizzy, iron infusions ordered 2. Hx anxiety and depression. Not on anything and feels stable. GAD11/PHQ 8 at 32 weeks declines meds or referral 3. Abdominal pain RLQ at 32 wks sent to ED from clinic cc:: CC: Review of Systems Status of ROS: Reports: 6 or more systems reviewed and unremarkable except as noted in History and below [facility] Medical History Anemia ?D64.9 - Anemia, unspecified (ICD-10) Menorrhagia ?N92.0 - Excessive and frequent menstruation with regular cycle (ICD-10) Iron deficiency anemia ?D50.9 - Iron deficiency anemia, unspecified (ICD-10) Anxiety ?F41.9 - Anxiety disorder, unspecified (ICD-10) Depression ?F32.A - Depression, unspecified (ICD-10) Surgical History No significant past surgical history Social History Narrative: SOCIAL? ? Education: associate's? ? Work: unemployed at this time, looking? ? Partner: Terrell? not , not in a relationship ? Lives with: mother and father? ? Pets: dog? ? Abuse: Denies past Safe at home with current partner ? ? ? Special Diet: Denies? ? Ok with a blood transfusion: yes? ? Culture or christianity beliefs: denies? What is your current living situation?: I presently have a place to live In the past 12 months, utilities in danger of being shut off: no In past 12 months, lack of transportation kept you from medical appts, meetings, work, or getting things needed for daily living: no How hard is it for you to pay for the very basics like food, housing, medical care, and heating: not applicable In the past 12 mos, have been you worried that your food would run out before you had money to buy more?: never true In the past 12 mos, the food you bought just didn't last and you didn't have money to buy more?: never true Smoking Status: Former smoker Do you use any of these nicotine containing products: E-Cigarettes and Vaping Products Second hand tobacco smoke exposure: No How often do you have a drink containing alcohol: never How often do you have six or more drinks on one occasion: Never AUDIT-C Alcohol total score: 0 Non-prescribed substance use: denies use How often does anyone, including family, friends and others, physically hurt you : never How often does anyone, including family, friends and others, insult or talk down to you: never How often does anyone, including family, friends and others, threaten you with harm: never How often does anyone, including family, friends and others, scream or curse at you: never Little interest or pleasure in doing things: several days Feeling down, depressed, or hopeless: several days Meds Home Medications and Allergies Home Medications Medication Instructions Recorded Confirmed Type docosahexaenoic acid 2 cap PO DAILY 10/19/22 02/18/23 History ferrous sulfate 325 mg (65 mg 325 mg PO Q OTHER DAY 11/11/22 02/18/23 History iron) tablet,delayed release Allergies Allergy/AdvReac Type Severity Reaction Status Date / Time amoxicillin Allergy Intermediate Hives Verified 02/18/23 21:41 [employer] - Exam Physical Exam: Vital signs: Temp Pulse Resp BP Pulse Ox O2 Del Method 97.8 F 74 17 91/56 L 100 Room Air 02/18/23 15:14 01/02/24 20:07 02/18/23 20:07 02/18/23 20:07 02/18/23 20:07 02/18/23 20:07 Narrative: Physical exam: General: No acute distress, in good humor Psych: Alert and oriented x3, full affect HEENT: Normocephalic, atraumatic Heart: Regular rate and rhythm, no murmur rub or gallop Lungs: Clear to auscultation bilaterally Abdomen: Soft, gravid, cephalic lie. Some tenderness to palpation around the umbilicus, but none in right or left lower quadrant. tracing: Baseline 130, accelerations present, no decelerations, moderate variability. 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 - Results Labs Labs: Short CBC 02/18/23 Range/Units 18:05 WBC 9.27 (4.50-11.00) K/uL Hgb 10.4 L (12.0-16.0) gm/dL Hct 32.1 L (33.0-51.0) % Plt Count 187 (140-440) K/uL BMP 02/18/23 18:05 Sodium 136 Potassium 3.6 Chloride 108 Carbon Dioxide 19 L BUN 4 L Creatinine 0.4 L Glucose 75 Calcium 8.3 L Liver Function 02/18/23 Range/Units 18:05 Total Bilirubin 0.4 (0.1-1.5) mg/dL AST 28 (12-35) U/L ALT 19 (4-35) U/L Alkaline Phosphatase 113 (40-150) U/L Albumin 3.7 (3.3-5.0) g/dL Urine 02/18/23 Range/Units 18:21 Urine Color Yellow (Yellow) Urine Appearance Clear (Clear) Urine pH 7.5 (5.0-8.5) Ur Specific [place] 1.015 (1.000-1.030) Urine Protein Negative (Negative) Urine Glucose (UA) Negative (Negative) Imaging MRI - abdomen: Attestation: I have reviewed the pertinent imaging results. My impression: Fetus in cephalic lie Radiologist's impression: Final report not available to me at this time. Per ER physician, there was no appendicitis noted a gallstone was noted. US - abdomen: Radiologist's impression: IMPRESSION: No cholelithiasis or biliary dilatation. Assessment and Plan Assessment and plan (1) Abdominal pain affecting : Problem comment: sent to ED at 32 weeks Status: Acute Assessment and Plan: No appendicitis on imaging, no elevated white count, no fever. All imaging is reassuring, and pain is not severe. I wonder if constipation could be contributing to her current periumbilical pain. After her reactive nonstress test, she was discharged, with plan to follow up later this week if pain should persist. I recommended she begin a bowel regimen to include MiraLax nightly.
[2023-02-18 20:28] LABS: Bacteria Urine Moderate; RBC Urine 0-2 (0-2); Squamous Epithelial Cell Urine Moderate (None-Few)
[2023-02-18 22:03] LABS: Slide Review Acceptable Review (Acceptable)
--- NOTE | 2023-02-18 22:24 | PC.OBNST ---
NST Note NST Note Start: 02/18/23 21:13 Freq: ONCE Status: Active Protocol: Document 02/18/23 21:47 [facility] (Rec: 02/18/23 22:24 [facility] [id number]) NST Note 1 Para (# of births) 0 EDC 04/12/23 Gestational Age In Weeks & Days 32 Weeks & 3 Days Patient Presented with Complaint(s) of Pain If Pain, describe location Pain in lower right abdomen Other Complaints Patient was seen in ER for lower right abdominal pain. Possible gallstones. Reactive Yes Appropriate for Gestational Age Yes JOSE ANGEL Gordon, JOSE ANGELC Date 02/18/23 Reactive Yes Appropriate for Gestational Age Yes JOSE ANGEL Hunter, RN Date 02/18/23 OB NST charge Yes Complete NST Note via Write Note Yes The provider's electronic signature indicates the NST is reactive/appropriate for gestational age. *Note to provider: If an addendum is required, open the patient's chart and click on the note under the Nurse/Allied Health tab.
== END 2023-02-18 22:10 | disposition home or self-care (01) ==
LOC: ED 18:17 → OB 21:10 → ED 21:16 → OB OUT 21:33 → OB 21:34
PROVIDERS: Emergency Provider Emergency Medicine; Visit Provider Obstetrics & Gynecology
DX: O26.899 Other specified pregnancy related conditions, unspecified trimester (principal); R10.9 Unspecified abdominal pain; Z3A.32 32 weeks gestation of pregnancy
CPT/HCPCS: 36415; 59025; 74181; 76705; 80053; 81001; 83690; 85025; 87086; 94761; 99283; G0463; J7030

== ENCOUNTER 2023-03-07 13:40 | Outpatient (CLI) | payer BC, SELFPAY ==
[2023-03-07] VITALS (17 sets, daily range): BP systolic 104; BP diastolic 61; PULSE 79–99; O2SAT 97–99
--- NOTE | 2023-03-07 14:02 | CRLHL7_ITS ---
For Patients: As a result of the Century Cures Act, medical imaging exams and procedure reports are released immediately into your electronic medical record. You may view this report before your referring provider. If you have questions, please contact your health care provider. INDICATION: Right upper quadrant pain. TECHNIQUE: Ultrasound renal bilateral. Robert-scale and color Doppler sonographic images were acquired of the kidneys and urinary bladder. COMPARISON: CT abdomen pelvis May 17, 2022. FINDINGS: Right kidney: 10 cm. Normal echotexture and cortex. No suspicious masses, stones, or hydronephrosis. Left kidney: 10 cm. Normal echotexture and cortex. No suspicious masses, stones, or hydronephrosis. IMPRESSION: Unremarkable bilateral renal ultrasound. No hydronephrosis. Dictated by Alvaro Moctezuma MD @ 03/07/2023 5:10:29 PM (Electronically Signed)
[2023-03-07 14:35] LABS: Basophils Absolute Auto 0.02 K/uL (0.00-0.30); Basophils Percent Auto 0.2 % (0.0-3.0); Eosinophils Absolute Auto 0.09 K/uL (0.00-0.50); Hematocrit 32.2 % (33.0-51.0); Hemoglobin* 10.4 gm/dL (12.0-16.0); Immature Granulocytes Abs Auto 0.25 K/uL (0.00-0.30); Immature Granulocytes Pct Auto 2.7 %; Lymphocytes Percent Auto 15.9 % (20-44); Mean Corpuscular HGB Conc 32 gm/dL (32-36); Mean Corpuscular Hemoglobin 29 pg (26-34); Mean Corpuscular Volume 90 fL (80-100); Monocytes Percent Auto 7.2 % (0.0-11.0); Platelet Count* 189 K/uL (140-440); RDW Coefficient of Variation % 14.3 % (11.5-15.5); Red Blood Count 3.56 m/uL (4.00-5.20); White Blood Count* 9.12 K/uL (4.50-11.00)
[2023-03-07 14:37] LABS: Slide Review Reflex No
[2023-03-07 14:50] LABS: Alanine Aminotransferase* 19 U/L (4-35); Amylase* 52 U/L (18-89); Aspartate Amino Transferase* 29 U/L (12-35); Lipase* 35 U/L (23-300)
--- NOTE | 2023-03-07 15:16 | P.OBO_ITS ---
OB Outpatient HPI History of Present Illness History of Present Illness: Jocelyn is a 22 year old at 34 6/7 weeks gestation by LMP. Her CUCO is 04/12/2023. She presented today to her routine clinic visit with intense right abdominal pain. She was then sent to triage for evaluation. She was seen in the ER approximately 2-3 weeks ago for similar pain. At that time, imaging was performed with no abnormal findings, US and MRI. She was told by the ER doc that she had gallstones. Today, she reports her pain started a few hours ago on her right upper abdomen and radiates down her right side. She was brought over from the clinic in intense pain, tearful, but when the monitors were placed she reports the pain had alleviated. She reported her pain was a 5-6 down from a 9/10. She feels that her stomach has also been more hard. She is not aware if they are contractions or not. She denies any leaking of fluid or bleeding. She endorses + movement. She reports she has been hydrating but she is not a big water drinker. Her partner has recommended she drink Gatorade because of the electrolytes. She feels that her urine has been a little darker in the last few days but she has still been voiding frequently. She also reports she has been mildly constipated this . She is passing gas but has not had a bowel movement today. OB PROBLEM LIST 1. Anemia prepregnancy- takes iron EOD Hgb 10.0 at 28 weeks, fatigued and dizzy, iron infusions ordered 2. Hx anxiety and depression. Not on anything and feels stable. GAD11/PHQ 8 at 32 weeks declines meds or referral 3. Abdominal pain at 32 weeks, return at 34 6/7 Suspected kidney stone Baby moving naturally: Yes Bleeding: No Contractions: No Leaking fluid: No Discharge: No Heartburn: No Back pain: No Meds Home Medications and Allergies Home Medications Medication Instructions Recorded Confirmed Type docosahexaenoic acid 2 cap PO DAILY 10/19/22 03/07/23 History ferrous sulfate 325 mg (65 mg 325 mg PO Q OTHER DAY 11/11/22 03/07/23 History iron) tablet,delayed release Allergies Allergy/AdvReac Type Severity Reaction Status Date / Time amoxicillin Allergy Intermediate Hives Verified 03/07/23 13:19 [facility] Medical History Anemia ?D64.9 - Anemia, unspecified (ICD-10) Menorrhagia ?N92.0 - Excessive and frequent menstruation with regular cycle (ICD-10) Iron deficiency anemia ?D50.9 - Iron deficiency anemia, unspecified (ICD-10) Anxiety ?F41.9 - Anxiety disorder, unspecified (ICD-10) Depression ?F32.A - Depression, unspecified (ICD-10) Surgical History No significant past surgical history Social History Narrative: SOCIAL? ? Education: associate's? ? Work: unemployed at this time, looking? ? Partner: Terrell? not , not in a relationship ? Lives with: mother and father? ? Pets: dog? ? Abuse: Denies past Safe at home with current partner ? ? ? Special Diet: Denies? ? Ok with a blood transfusion: yes? ? Culture or scientology beliefs: denies? What is your current living situation?: I presently have a place to live In the past 12 months, utilities in danger of being shut off: no In past 12 months, lack of transportation kept you from medical appts, meetings, work, or getting things needed for daily living: no How hard is it for you to pay for the very basics like food, housing, medical care, and heating: not applicable In the past 12 mos, have been you worried that your food would run out before you had money to buy more?: never true In the past 12 mos, the food you bought just didn't last and you didn't have money to buy more?: never true Smoking Status: Never smoker Do you use any of these nicotine containing products: E-Cigarettes and Vaping Products Second hand tobacco smoke exposure: No How often do you have a drink containing alcohol: never How often do you have six or more drinks on one occasion: Never AUDIT-C Alcohol total score: 0 Non-prescribed substance use: denies use How often does anyone, including family, friends and others, physically hurt you : never How often does anyone, including family, friends and others, insult or talk down to you: never How often does anyone, including family, friends and others, threaten you with harm: never How often does anyone, including family, friends and others, scream or curse at you: never Little interest or pleasure in doing things: several days Feeling down, depressed, or hopeless: several days History History 1 Elective abortions Para 0 Spontaneous abortions Hx # Term Pregnancies Ectopic pregnancies Hx # Pregnancies Multiple births Number of Living Children 0 OB - H&P: Exam Physical Exam Vital signs: Pulse BP Pulse Ox 92 104/61 99 03/07/23 14:03 03/07/23 14:03 03/07/23 15:00 Narrative: General Appearance: Alert, appropriate appearance for age. No acute distress Chest/Respiratory Exam: Normal chest wall and respirations. Unlabored breathing. Abdomen: Soft, non-distended and nontender. Musculoskeletal: Positive for CVA tenderness on right side, negative on left side Neurologic Exam: Normal gait and speech, no tremor. Psychiatric Exam: Alert and oriented, appropriate affect. Labs Labs Laboratory Tests WBC 9.12 K/uL (4.50-11.00) 03/07/23 14:27 RBC 3.56 m/uL (4.00-5.20) L 03/07/23 14:27 Hgb 10.4 gm/dL (12.0-16.0) L 03/07/23 14:27 Hct 32.2 % (33.0-51.0) L 03/07/23 14:27 MCV 90 fL (80-100) 03/07/23 14:27 MCH 29 pg (26-34) 03/07/23 14:27 MCHC 32 gm/dL (32-36) 03/07/23 14:27 RDW Coeff of Thomas 14.3 % (11.5-15.5) 03/07/23 14:27 Plt Count 189 K/uL (140-440) 03/07/23 14:27 Neut % (Auto) 73.0 % (42.0-72.0) H 03/07/23 14:27 Lymph % (Auto) 15.9 % (20-44) L 03/07/23 14:27 Bryan % (Auto) 7.2 % (0.0-11.0) 03/07/23 14:27 Eos % (Auto) 1.0 % (0.0-7.0) 03/07/23 14:27 Baso % (Auto) 0.2 % (0.0-3.0) 03/07/23 14:27 Neut # (Auto) 6.70 K/uL (1.7-7.0) 03/07/23 14: Lymph # (Auto) 1.50 K/uL (0.90-2.90) 03/07/23 14:27 Bryan # (Auto) 0.70 K/UL (0.00-0.90) 03/07/23 14: Eos # (Auto) 0.09 K/uL (0.00-0.50) 03/07/23 14: Baso # (Auto) 0.02 K/uL (0.00-0.30) 03/07/23 14: Abs Immat Gran (auto) 0.25 K/uL (0.00-0.30) 03/07/23 14: Imm/Tot Granulo (auto) 2.7 % 03/07/23 14: AST 29 U/L (12-35) 03/07/23 14:27 ALT 19 U/L (4-35) 03/07/23 14: Amylase 52 U/L (18-89) 03/07/23 14:27 Lipase 35 U/L (23-300) 03/07/23 14:27 Urine Color Yellow (Yellow) 03/07/23 15:10 Urine Appearance Clear (Clear) 03/07/23 15:10 Urine pH 7.0 (5.0-8.5) 03/07/23 15:10 Ur Specific [place] 1.020 (1.000-1.030) 03/07/23 15:10 Urine Protein Negative (Negative) 03/07/23 15:10 Urine Glucose (UA) Negative (Negative) 03/07/23 15:10 Urine Ketones Trace (Negative) A 03/07/23 15:10 Urine Blood Negative (Negative) 03/07/23 15:10 Urine Nitrite Negative (Negative) 03/07/23 15:10 Urine Bilirubin Negative (Negative) 03/07/23 15:10 Urine Urobilinogen 1.0 (0.2-1.0) 03/07/23 15:10 Ur Leukocyte Esterase 2+ (Negative) A 03/07/23 15:10 Urine RBC 0-2 (0-2) 03/07/23 15:10 Urine WBC 2-5 (0-5) 03/07/23 15:10 Urine WBC Clumps None (None) 03/07/23 15:10 Ur Squamous Epith Cells Moderate (None-Few) A 03/07/23 15:10 Amorphous Sediment Few (None) A 03/07/23 15:10 Urine Bacteria Few (None) A 03/07/23 15:10 Assessment and Plan Assessment and plan (1) Abdominal pain affecting : Status: Acute Plan at 34 6/7 weeks gestation Abdominal pain; Suspicious for Kidney stones Labs WNL, no stone, fluid, or inflammation on US. Discussed that I can not exclude other causes for pain but based on physical exam and labs this is consistent with Kidney stone. Ultrasound may not see stone if it is passing or has passed and it can be more difficult with . Reviewed management of kidney stone including increased hydration. I cautious her use of Gatorade, as this may increase her risk of stone. She can strain her urine to observe for stone. Reviewed s/sx of when to return or seek emergent care. Pain management with rest, Tylenol as needed, and heat. If pain worsens, she is encouraged to return for further evaluation or pain control. Discharge to home. Return to clinic for routine care.
[2023-03-07 15:27] LABS: Appearance Urine Clear (Clear); Bilirubin Urine Negative (Negative); Blood Urine Negative (Negative); Color Urine Yellow (Yellow); Glucose Urine Negative (Negative); Ketones Urine Trace (Negative); Leukocyte Esterase Urine 2+ (Negative); Nitrite Urine Negative (Negative); Protein Urine Negative (Negative)
--- NOTE | 2023-03-07 15:27 | PC.OBNST ---
NST Note NST Note Start: 03/07/23 13:44 Freq: ONCE Status: Active Protocol: Document 03/07/23 13:44 [facility] (Rec: 03/07/23 15:27 [facility] [id number]) NST Note 1 Para (# of births) 0 EDC 04/12/23 Gestational Age In Weeks & Days 34 Weeks & 6 Days Patient Presented with Complaint(s) of Pain If Pain, describe location episodic upper right sided pain. Reactive Yes Appropriate for Gestational Age Yes JOSE ANGEL Hernandez RN Date 03/07/23 Reactive Yes Appropriate for Gestational Age Yes JOSE ANGEL Anderson RN Date 03/07/23 OB NST charge Yes Complete NST Note via Write Note Yes The provider's electronic signature indicates the NST is reactive/appropriate for gestational age. *Note to provider: If an addendum is required, open the patient's chart and click on the note under the Nurse/Allied Health tab.
[2023-03-07 16:01] LABS: Bacteria Urine Few; RBC Urine 0-2 (0-2); Squamous Epithelial Cell Urine Moderate (None-Few)
[2023-03-07 16:02] LABS: Amorphous Sediment Urine Few
== END 2023-03-07 16:21 | disposition home or self-care (01) ==
LOC: OB OUT 13:42 → OB 13:43
PROVIDERS: Visit Provider Advanced Practice Midwife
DX: O26.893 Other specified pregnancy related conditions, third trimester (principal); R10.11 Right upper quadrant pain; Z3A.34 34 weeks gestation of pregnancy
CPT/HCPCS: 36415; 59025; 76775; 81003; 81015; 82150; 83690; 84450; 84460; 85025; 87086; G0463

== ENCOUNTER 2023-03-17 11:00 | Outpatient (CLI) | payer BC, SELFPAY ==
[2023-03-18 11:48] LABS: Strep B DNA Probe Negative (Negative)
[2023-03-18 11:51] LABS: Strep B Susceptibility Needed? No
== END 2023-03-17 11:01 | disposition home or self-care (01) ==
LOC: NFLDREF 11:01
PROVIDERS: Visit Provider Advanced Practice Midwife
DX: Z34.93 Encounter for supervision of normal pregnancy, unspecified, third trimester (principal)
CPT/HCPCS: 87081; 87653

== ENCOUNTER 2023-03-24 09:07 | Outpatient (CLI) | payer BC, SELFPAY ==
--- NOTE | 2023-03-24 09:15 | CRLHL7_ITS ---
For Patients: As a result of the Century Cures Act, medical imaging exams and procedure reports are released immediately into your electronic medical record. You may view this report before your referring provider. If you have questions, please contact your health care provider. INDICATION: Third trimester scan, evaluate growth. MEASURING SMALL FOR DATES COMPARISON: 11.25.22 TECHNIQUE: Real time santiago scale imaging of the fetus was performed. FINDINGS: Sonographic imaging demonstrates a single living intrauterine gestation. Fetus demonstrates a regular cardiac rate of 147 beats per minute. Fetus has a vertex position. The placenta lies anterior without evidence of placenta previa. Amniotic fluid volume appears normal and there is a single deepest vertical pocket: 3.0 cm. The estimated weight is 3199gm which lies at the 61st %. On the prior OB ultrasound exam dated 11/25/2022 the estimated weight was at the 44th%. BPD 78th percentile. HC 27th percentile. AC 68th percentile. FL 49th percentile. The HC/AC ratio measures 0.98 range (0.91-1.05). IMPRESSION: Sonographic gestational age 37 weeks 3 days and sonographic due date 04/11/2023. Good correlation with dates. Normal interval growth. Estimated weight 61st percentile. Abdominal circumference 68th percentile. Dictated by Tanner Owens MD @ 03/24/2023 11:47:57 AM (Electronically Signed)
== END 2023-03-24 09:08 | disposition home or self-care (01) ==
LOC: US 09:07
PROVIDERS: Visit Provider Advanced Practice Midwife
DX: O36.5930 Maternal care for other known or suspected poor fetal growth, third trimester, not applicable or unspecified (principal); Z3A.37 37 weeks gestation of pregnancy
CPT/HCPCS: 76816

== ENCOUNTER 2023-04-05 13:52 | Outpatient (CLI) | payer BC, SELFPAY ==
[2023-04-05 14:31] VITALS: RESP 16; TEMP 36.7
[2023-04-05 14:32] VITALS: PULSE 96; O2SAT 99
[2023-04-05 14:39] VITALS: BP 100/62; PULSE 92
[2023-04-05 15:19] LABS: Appearance Urine Clear (Clear); Bilirubin Urine Negative (Negative); Blood Urine Trace-intact (Negative); Color Urine Yellow (Yellow); Glucose Urine Negative (Negative); Ketones Urine Negative (Negative); Leukocyte Esterase Urine 1+ (Negative); Nitrite Urine Negative (Negative); Protein Urine Negative (Negative); Urobilinogen Urine 0.2 (0.2-1.0)
[2023-04-05 16:03] LABS: Amnisure Rom* Negative
[2023-04-05 16:15] LABS: Clue Cells No Clue Cells Seen (None Seen); Trichomonas No Trichomonas Seen (None Seen); Yeast No Yeast Seen (None Seen)
[2023-04-05 16:37] LABS: Bacteria Urine Few; RBC Urine 0-2 (0-2); Squamous Epithelial Cell Urine Few (None-Few); WBC Urine 0-2 (0-5)
--- NOTE | 2023-04-05 16:54 | PC.OBNST ---
NST Note NST Note Start: 04/05/23 14:39 Freq: ONCE Status: Active Protocol: Document 04/05/23 16:53 [facility] (Rec: 04/05/23 16:54 [facility] [id number]) NST Note 1 Para (# of births) 0 EDC 04/12/23 Gestational Age In Weeks & Days 39 Weeks & 0 Days Patient Presented with Complaint(s) of Other Other Complaints green/yellow vaginal discharge Reactive Yes Appropriate for Gestational Age Yes RN Deborah Arias RN Date 04/05/23 Reactive Yes Appropriate for Gestational Age Yes JOSE ANGEL Umanzor CNM Date 04/05/23 OB NST charge Yes Complete NST Note via Write Note Yes The provider's electronic signature indicates the NST is reactive/appropriate for gestational age. *Note to provider: If an addendum is required, open the patient's chart and click on the note under the Nurse/Allied Health tab.
[2023-04-05 17:23] LABS: Bacterial Vaginosis* DETECTED (No Detected)
[2023-04-05 17:24] LABS: Candida glab/krus Not Detected (No Detected); Candida species DETECTED (No Detected); Trichomonas vaginalis Not Detected (No Detected)
[2023-04-05 17:30] LABS: Chlamydia DNA Amplified* Not Detected (No Detected); GC DNA Amplified* Not Detected (No Detected)
--- NOTE | 2023-04-05 23:57 | PM.OBLDTN ---
OB - Triage/Final Diagnosis Visit Information Date of evaluation: 04/05/23 Narrative: The patient is a 22 year old 1 para 0 at 39. weeks gestation by LMP, who presents with yellow/green discharge some itching and burning in her vagina. She was evaluated for possible SROM, UTI, Gonnorhea, Chlamydia, BV and yeast. Lab work was negative initially for all, after patient left the lab called and asked to run a more sensitive test as they had some suspicion for false negative. This test showed positive BV and yeast. Pt called with results and Rx sent to pharmacy. Discharged home with routine precautions. Reason for evaluation: other Comments/Additional reasons for admission: Rule out ROM and infection. Evaluation Laboratory results: Laboratory Tests 04/05/23 04/05/23 Range/Units 15:46 14:59 Urine Color Yellow (Yellow) Urine Appearance Clear (Clear) Urine pH 7.0 (5.0-8.5) Ur Specific [place] 1.020 (1.000-1.030) Urine Protein Negative (Negative) Urine Glucose (UA) Negative (Negative) Urine Ketones Negative (Negative) Urine Blood Trace-intact A (Negative) Urine Nitrite Negative (Negative) Urine Bilirubin Negative (Negative) Urine Urobilinogen 0.2 (0.2-1.0) Ur Leukocyte Esterase 1+ A (Negative) Urine RBC 0-2 (0-2) Urine WBC 0-2 (0-5) Ur Squamous Epith Cells Few (None-Few) Urine Bacteria Few A (None) Membrane Rupture Negative Vaginal Trichomonas No Trichomonas Seen (None Seen) Vaginal Yeast No Yeast Seen (None Seen) Vaginal Clue Cells No Clue Cells Seen (None Seen) Vaginal Bacterial Vaginosis DETECTED A (No Detected) Vaginal Stephani species DETECTED A (No Detected) Vag C. glabrata/krusei Not Detected (No Detected) Vag T. vaginalis Not Detected (No Detected) C.trachomatis Ampl DNA Not Detected (No Detected) N.gonorrhoeae Ampl DNA Not Detected (No Detected) Vital signs: Vital Signs - 24 hr 04/05/23 14:31 04/05/23 14:32 04/05/23 14:39 Temperature 98.1 F Pulse Rate Respiratory Rate 16 Blood Pressure 100/62 Pulse Oximetry 99 04/05/23 14:39 Temperature Pulse Rate 92 Respiratory Rate Blood Pressure Pulse Oximetry Fetus (Single) Heart Rate Baseline: 125 Longterm Variability: Moderate (6-25) Monitor Accelerations: Present Monitor Decelerations: None Final Diagnosis (1) Stephani infection: Status: Acute (2) Bacterial vaginosis in : Status: Acute
== END 2023-04-05 16:50 | disposition home or self-care (01) ==
LOC: OB OUT 13:52 → OB 14:19
PROVIDERS: Visit Provider Advanced Practice Midwife
DX: O23.593 Infection of other part of genital tract in pregnancy, third trimester (principal); B37.9 Candidiasis, unspecified; B96.89 Other specified bacterial agents as the cause of diseases classified elsewhere; Z3A.39 39 weeks gestation of pregnancy
CPT/HCPCS: 59025; 81003; 81015; 81513; 84112; 87086; 87210; 87481; 87491; 87591; 87661; G0463

== ENCOUNTER 2023-04-09 07:50 | Inpatient (IN) | payer BC, SELFPAY ==
[2023-04-09] VITALS (34 sets, daily range): BP systolic 96–130; BP diastolic 51–69; PULSE 61–131; RESP 18; TEMP 36.6–37.1; O2SAT 97–100; BMI 25.2
--- NOTE | 2023-04-09 07:41 | W.PM.LDBA ---
Subjective History of Present Illness Date Seen: 04/09/23 Narrative: Patient is being admitted to Labor and Delivery for SROM at home with contractions. She is a 22 year old at 39.4 weeks gestation. Her full history and physical was dictated by Deidra Umanzor CNM on 03/24/23. Please see this for details. Jocelyn ruptured this morning around 0520. she had a few contractions that increased after SROM. She is breathing with her contractions. Her fluid is noted to be thick meconium stained on admission. She was agreeable to a SVE and was 1.5-2/80%/-2. Her cervical exam was difficult for her and nitrous and shared decision making was used in the process of the exam. She tolerated fairly with the nitrous and a slow exam. She desired a water and is aware that thick meconium eliminates her from this. She is supported by her mom who is present at her bedside and supportive. Specific Issues/Plans FOB Terrell involved, not in current relationship with him. Lives with her parents. Pt's mother is Rosamaria H&P done by Deidra Umanzor CNM on 03/24/23 1. Anemia prepregnancy- takes iron EOD Hgb 10.0 at 28 weeks, fatigued and dizzy, iron infusions ordered 2. Hx anxiety and depression. Not on anything and feels stable. GAD11/PHQ 8 at 32 weeks declines meds or referral 3. Abdominal pain at 32 weeks, return at 34 6/7 Suspected kidney stone 4. Measuring small for dates at 36 wks. Growth u/s ordered. growth EFW 61%, head low in pelvis, SDP 3.0 5. Tx for BV and yeast at 39 weeks Needs pap PP. COVID: declined Flu: declined TDAP: declined RSV: declined 32wk Mental Health: 02/18/2023 34wk Hgb: 03/07/2023: 10.4 OB - Problem Based A/P Additional Plan (1) Pain during labor: Status: Acute (2) Thick meconium stained amniotic fluid: Status: Acute Plan at 39.4 weeks gestation? GBS negative? Uncomplicated ? Thick meconium stained fluid. ?? PLAN:? 1. ?Desires water . Aware that she is not a candidate due to thick meconium stained fluid. 2. Candidate for analgesia of choice. Planning unmedicated .? 3. Monitor temperature per policy. 4. Anticipate ? 5. Expectant management at this time.? 6. Notify pediatric provider to be aware of the need for them at time of delivery. ? Delivery/Labor/Induction Plan Plan: expectant management OB Result Labs Blood Type: 0 (-) negative GBS Status: negative OB Exam Physical Exam Vital signs: Temp Pulse BP Pulse Ox 98.0 F 69 116/62 98 04/09/23 06:30 04/09/23 06:30 04/09/23 06:30 04/09/23 07:20 Detailed Labor and Delivery Exam Patient Gravid: Yes Dilation (cm): 2 (1.5-2) Effacement (%): 80 Cervix position: posterior Consistency: medium Contraction Frequency: 4-5 Contraction intensity: Moderate Fetus (Single) Station: -2 Amniotic Membrane Status: SROM Amniotic Membrane Fluid Description: Meconium Stained, Green and Brown Heart Rate Baseline: 125 Monitor Accelerations: Present Monitor Decelerations: None Industrial Recruiter Variability: Moderate (6-25)
--- NOTE | 2023-04-09 12:57 | P.OBPN_ITS ---
Subjective Time Seen by Provider: 12:30 Date Seen: 04/09/23 Narrative: Jocelyn is requesting a SVE as she is feeling more pressure. She was found to be 3cm/90%/-2. She continues to leak thick meconium stained fluid. Will continue to provide labor support and anticipate . Objective Vital Signs: Last Vital Signs Temp 98.5 F 04/09/23 12:35 Pulse 86 04/09/23 10:16 Resp 18 04/09/23 12:35 BP 101/62 04/09/23 10:16 Pulse Ox 98 04/09/23 07:20 Pelvic Exam Dilation (cm): 3 Effacement (%): 90 Station: -2 Contractions Monitor mode: External Contraction Frequency: 3-5 Contraction pattern: Regular Contraction intensity: Strong/Firm Assessment Assessment: early labor Station: -2 Amniotic Membrane Status: SROM Status: Category l Heart Rate Baseline: 130 Secondary Education Professor Variability: Moderate (6-25) Monitor Accelerations: Present Monitor Decelerations: None Plan Plan: Early labor. Continue with labor support. Monitor VS and FHR per policy. Anticipate .
--- NOTE | 2023-04-09 15:37 | PM.OBPNL ---
Subjective Time Seen by Provider: 15:30 Date Seen: 04/09/23 Narrative: Jocelyn has been feeling an increase in pressure and an urge to push with contractions. She requested a cervical exam and was found to be 6-7/90%/0 with a very soft cervix. She is continuing to labor with support from the RN and her mom. Encouraged her to change positions and move. Objective Vital Signs: Last Vital Signs Temp 98.5 F 04/09/23 14:15 Pulse 85 04/09/23 14:15 Resp 18 04/09/23 14:15 BP 111/65 04/09/23 14:15 Pulse Ox 98 04/09/23 07:20 Pelvic Exam Dilation (cm): 6-7 Effacement (%): 90 Station: 0 Contractions Monitor mode: External Contraction Frequency: 4 Contraction pattern: Regular Contraction intensity: Strong/Firm Assessment Assessment: active labor Station: 0 Amniotic Membrane Status: SROM Status: Category ll Heart Rate Baseline: 135 Intermediate Variability: Moderate (6-25) Monitor Accelerations: Present Monitor Decelerations: None Plan Plan: Continue with labor support. Anticipate
[2023-04-09] MEDS: OXYTOCIN 10 UNIT/ML INJ IM (22:15)
[2023-04-09] MEDS: miSOPROStoL 800 MCG/4 TABLET PR (22:18)
[2023-04-09] MEDS: LIDOCAINE 1 % PF 30 ML INJECTION (22:26)
[2023-04-09] MEDS: OXYTOCIN 30 unit/500 ML in NS 30 UNIT/500 ML BAG 300 UNIT IVPB (22:27)
[2023-04-09] MEDS: LACTATED RINGERS 1000 ML 1,000 ML 125 ML IV (22:37)
[2023-04-09 23:38] LABS: Hemoglobin* 11.8 gm/dL (12.0-16.0)
[2023-04-10] VITALS (9 sets, daily range): BP systolic 94–115; BP diastolic 55–73; PULSE 70–109; RESP 16–18; TEMP 36.6–37.2; O2SAT 96–100
[2023-04-10] MEDS: ACETAMINOPHEN 500 MG TABLET 1000 MG PO ×3 (00:15→12:35)
--- NOTE | 2023-04-10 00:49 | W.PM.OBVAGDE ---
OB Procedure Vag Delivery Mother Details Mother Details: The patient is a 22 year-old, 1, Para 1, admitted on 04/09/23 at 39.94Days gestation. : 1 Para: 1 Weeks Gestation: 39.4 Admission Date: 04/09/23 Additional Details Amniotic Membrane Status: SROM Amniotic Membrane Rupture Date: 04/09/23 Amniotic Membrane Rupture Time: 05:25 Amniotic Membrane Fluid Description: Meconium Stained, Green and Brown Analgesia/Anesthesia Type: Nitrous Oxide Waterbirth: No Pitcoin: Yes (after delivery only) Intrapartal Events: Mod/Heavy Meconium Fluid Labor Onset: 14:00 Complete: 20:13 Pushin:19 Heart: heart tones during second stage were category 2 with moderate variability, + accels, and occasional variable decelerations. Baseline 125. Delivery Details Delivery Date: 04/09/23 Delivery Time: 22:05 Route of delivery: Infant Gender: Female Viability: Alive; Heart Rate Present Position at Delivery: OA Delivery Details: Patient was admitted for SROM with thick meconium stained fluid and progressed normally. SROM noted at 0525 with clear fluid. Patient was complete at 2012 and pushing at 2019. of a viable female at 2205 in semi fowlers in the bed. Vertex delivered OA. No nuchal cord or shoulder but cord was around baby's arm at delivery. Body delivered easily and without incident. Infant passed to mothers abdomen with a vigorous cry. Cord was clamped and cut at > 5 minutes. APGARS were 8 at one minute and 9 at five minutes respectively. Mouth was bulb suctioned. Intact placenta with a 3 vessel cord delivered spontaneously at 2218. Before delivery of the placenta there was large gushes of blood. Placenta delivered slowly with trailing membranes. Before trailing membranes were delivered IM Pitocin was given as well as rectal Cytotec. Bleeding stopped with delivery of the trailing membranes and was minimal after that. Fundus firm. IV Pitocin was started as well after delivery of the placenta. Labial laceration identified and repaired in typical fashion. QBL 1000 cc. Mother and baby stable; mother plans to breastfeed. weight 3105g.? 1 Minute Interval Total Score: 8 5 Minute Interval Total Score: 9 Additional Details Shoulder Dystocia: No Placenta Delivery Time: 22:18 Placental Delivery Description: Spontaneous Blood Loss: 1,000 Laceration: Labial (right) Episiotomy Description: None Blood Loss Measurement Type: QBL Bakri Used: No Sponge/Need Count Correct: Yes Cord Vessel Description: 3 Vessels and Around Extremity (around arm) Event Summary Status: Mother and infant were stable after delivery. Disposition: floor
--- NOTE | 2023-04-10 08:22 | P.OBPN_ITS ---
OB - PN:Subj Subjective Date Seen: 04/10/23 Narrative: Joeclyn is a 22 y.o. who was admitted to L & D for spontaneous onset of labor. ?She had an complicated NVD by hemorrhage.?The patient feels well. ?The pain is well controlled with current medications. ?She has no new complain ts. ?She is breast feeding and reports things are going well.? the patient has done well.? Vitals have been stable.? She has remained afebrile.? Has a good appetite, is tolerating a general diet. ?She is voiding without difficulty.? She is passing gas and has not had a bowel movement.? She is ambulating and denies any dizziness.? Has Small amount of rubra lochia. She did report some mild chest pain this morning when she sat up. She notified me on rounding but was having some burping and had not eaten. She denies any SOB or lightheadedness. She otherwise feels normal. Hemoglobin had not been drawn this am, yesterday evening was 11.8. She feels it is mild and is going to attempt eating to see if it is just related to not eating since yesterday and heartburn. She will notify RN if it does not resolve. Lung and heart sounds are WNL. OB - PN: Obj Exam Physical Exam: Vital signs: Temp Pulse Resp BP Pulse Ox O2 Del Method 99.0 F 98 18 115/70 100 Room Air 04/10/23 04:00 04/10/23 04:00 04/10/23 04:00 04/10/23 04:00 04/10/23 04:00 04/10/23 04:00 Narrative: GENERAL APPEARANCE:? normal affect, alert, no distress MOOD:? appropriate CHEST:? clear to auscultation HEART:? regular rate and rhythm ABDOMEN:? soft, non-tender the uterine fundus is 1 below Umbilicus, Midline and is appropriate for the stage of recovery. PERINEUM:? mild edema of the perineum, labial laceration is healing well. EXTREMITIES:? normal and no edema OB - PN: Obj Data Labs Labs: Laboratory Results - last 24 hr 04/09/23 23:30 Hgb 11.8 L Blood Type O Negative Antibody Screen POSITIVE OB - PN: A/P Delivery Assessment and Plan (1) care and examination immediately after delivery: Status: Acute (2) Lactating mother: Status: Acute (3) Anemia due to acute blood loss: Status: Acute Plan day: 1 Plan: routine care Comments: Routine care May see if desired Hemoglobin ordered for 10 am. Monitor for symptoms of severe anemia. Anticipate discharge tomorrow.
[2023-04-10 11:29] LABS: Hemoglobin* 9.2 gm/dL (12.0-16.0)
[2023-04-10] MEDS: DOCUSATE SODIUM 100 MG CAPSULE PO (12:35)
[2023-04-10] MEDS: BENZOCAINE/MENTHOL SPRAY 85 GM AEROSOL 1 APPLIC TOPICAL (12:36)
[2023-04-11] MEDS: ACETAMINOPHEN 500 MG TABLET 1000 MG PO (03:07)
[2023-04-11 05:23] VITALS: BP 90/48; PULSE 74; RESP 16; TEMP 36.7; O2SAT 97
[2023-04-11 08:30] VITALS: BP 90/52; PULSE 61; RESP 16; TEMP 36.6; O2SAT 97
[2023-04-11] MEDS: DOCUSATE SODIUM 100 MG CAPSULE PO (09:00)
[2023-04-11] MEDS: LANOLIN CREAM 1 APPLIC TOPICAL (09:00)
--- NOTE | 2023-04-11 10:24 | PM.OBDSVD1 ---
DS: Providers Provider Date Seen: 04/11/23 Date of admission: 04/09/23 07:50 Primary care physician: Not a Local Provider Admitting Clinician: Sandy Mckeon CNM Attending Physician on discharge: Arlin Umanzor CNM Date of Discharge: 04/11/23 DS: Diagnosis Discharge Diagnosis (1) care and examination immediately after delivery: Status: Acute (2) Lactating mother: Status: Acute (3) Anemia due to acute blood loss: Status: Acute Exam Narrative: Exam Narrative: GENERAL APPEARANCE:? normal affect, alert, no distress MOOD:? appropriate CHEST:? clear to auscultation HEART:? regular rate and rhythm ABDOMEN:? soft, non-tender the uterine fundus is firm At Umbilicus, Midline and is appropriate for the stage of recovery. PERINEUM:? mild edema of the perineum, there is a Perineal Laceration,? labial laceraton that is healing well. EXTREMITIES:? normal and no edema Const: Vital Signs, click to edit/add: Vital Signs - 24 hr 04/10/23 12:40 04/10/23 17:40 04/10/23 21:29 Temperature 98.4 F 98.3 F 97.8 F Pulse Rate [Right Pulse Oximeter] 76 108 H 78 Respiratory Rate 16 16 16 Blood Pressure [Ri ght Arm] 95/58 L 105/73 94/57 L Pulse Oximetry 98 96 98 Oxygen Delivery Me thod Room Air Room Air Room Air 04/11/23 05:23 04/11/23 08:30 Temperature 98.0 F 97.9 F Pulse Rate [Right Pulse Oximeter] 74 61 Respiratory Rate 16 16 Blood Pressure [Ri ght Arm] 90/48 L 90/52 L Pulse Oximetry 97 97 Oxygen Delivery Me thod Room Air Room Air Documenting provider has reviewed patient's vital signs: yes OB - DS: Summary Hospital Course Hospital Course: Jocelyn is a 22 y.o. who was admitted to L & D for labor. ?She had an uncomplicated NVD.?The patient feels well. ?The pain is well controlled with current medications. ?She has no new complaints. ?She is breast feeding and reports things are going well.? the patient has done well.? Vitals have been stable.? She has remained afebrile.? Has a good appetite, is tolerating a general diet. ?She is voiding without difficulty.? She is passing gas and has had a bowel movement.? She is ambulating and denies any dizziness.? Has Small amount of rubra lochia. ?She is planning [] for prevention. Peripartum Data delivery method: Vaginal Laceration description: Labial complications: none [place]ter Gender: Female Discharge Plan: Home Status at Discharge Functional status at discharge: independent ambulation Overall status at discharge: patient is progressing back to baseline Time Spent with Patient Time attestation: Total time spent providing and/or coordinating discharge services: Time spent: Less than 30 minutes Discharge Plan Discharge Disposition: Home, Self-Care Date of Admission: 04/09/23 07:50 Attending Provider on Discharge: Arlin Umanzor Primary Care Provider: Provider,Not a Local Condition: Stable Anticipated Discharge Date/Time: 04/11/23 12:00 Discharge Medications: New acetaminophen 500 mg Tablet 1,000 mg PO Q6H PRNQty: 0 0RF docusate sodium 100 mg Capsule 100 mg PO DAILY Qty: 90 2RF ibuprofen 600 mg Tablet 600 mg PO Q6H PRNQty: 60 0RF Continued ferrous sulfate 325 mg (65 mg iron) tablet,delayed release (DR/EC) 325 mg PO Q OTHER DAY Hold Instructions: will start again tonight docosahexaenoic acid [ DHA] 2 cap PO DAILY metronidazole 500 mg tablet 500 mg PO BID 7 Days Qty: 14 0RF miconazole nitrate 2 % cream 1 appful vaginal QHS 7 Days Qty: 45 0RF Discharge Orders: Discharge Order (Routine); Ordered 04/11/23 Ordered By: Arlin Umanzor Patient Education: OB Over the Counter Medication Information, OB Vaginal/Breast Feeding Additional Instructions: Discharge instructions were reviewed with the patient including signs and symptoms of infection and home going medications Nothing vaginally for 6 weeks: no tampons or intercourse Off Work or School for 6 weeks 2-week visit: discuss infant feeding concerns, review control options and screen for anxiety/depression. 6-week visit for an annual exam. consultation services are available to all mothers and babies for the first year after delivery.? To make an appointment, please call [phone]. Activity Level: Activity as Tolerated Discharge Diet: Regular Follow Up Appointments: Provider,Not a Local [Primary Care Provider] - [facility] [Provider Group] Forms: [employer] Info Instructions
== END 2023-04-11 15:33 | disposition home or self-care (01) | DRG 560 ==
LOC: OB OUT 04-10 11:11
PROVIDERS: Admitting Provider Advanced Practice Midwife; Visit Provider Advanced Practice Midwife
DX: O77.0 Labor and delivery complicated by meconium in amniotic fluid (principal); O72.1 Other immediate postpartum hemorrhage; O99.02 Anemia complicating childbirth; O99.03 Anemia complicating the puerperium; D62 Acute posthemorrhagic anemia; O70.0 First degree perineal laceration during delivery; Z3A.39 39 weeks gestation of pregnancy; Z37.0 Single live birth
CPT/HCPCS: 36415; 85018; 85461; 86592; 86850; 86870; 86880; 86900; 86901; G0463; A9270; J2001; J2590; J2791; J7120

== ENCOUNTER 2023-04-17 19:07 | Emergency (ER) | payer BC, SELFPAY ==
[2023-04-17 19:14] VITALS: BP 108/68; PULSE 100; RESP 20; TEMP 37.2; O2SAT 100; BMI 21.3
--- NOTE | 2023-04-17 19:59 | ED.GENADULT ---
HPI - General Adult General Chief complaint: Breast Symptoms Stated complaint: body aches, chest pain Time Seen by Provider: 04/17/23 19:16 History of Present Illness HPI narrative: This 22-year-old female comes in with breast tenderness in the left breast. She delivered a baby 8 days ago and is . She reports some redness and increased pain on the left breast. She also reports a fever yesterday. She arrives here with normal vital signs and is afebrile. She also noted some pinkish colored milk expressed from that left breast. Related Data Home Medications Medication Instructions Recorded Confirmed docosahexaenoic acid 2 cap PO DAILY 10/19/22 04/09/23 ferrous sulfate 325 mg (65 mg 325 mg PO Q OTHER DAY 11/11/22 04/07/23 iron) tablet,delayed release Previous Rx's Medication Instructions Recorded acetaminophen 500 mg tablet 1,000 mg (2 x 500 mg) PO Q6H PRN 04/11/23 #0 tabs docusate sodium 100 mg capsule 100 mg PO DAILY #90 caps 04/11/23 ibuprofen 600 mg tablet 600 mg PO Q6H PRN #60 tabs 04/11/23 cephalexin 500 mg capsule 500 mg PO QID 7 days #28 caps 04/17/23 Allergies Allergy/AdvReac Type Severity Reaction Status Date / Time amoxicillin Allergy Intermediate Hives Verified 04/07/23 10:54 Review of Systems Status of ROS: Reports: 10 or more systems reviewed and unremarkable except as noted in History and below Narrative: Constitutional: No weight gain or loss. Eyes: No discharge. No vision changes. HENT: No congestion, no sore throat, no ear pain. Cardiovascular: No chest pain, no palpitations. Respiratory: No shortness of breath, no wheezes, no cough. Gastrointestinal: No abdominal pain, no vomiting, no diarrhea. Genitourinary: No dysuria, no hematuria. Musculoskeletal: Normal range of motion. Skin: No rashes, no pruritis. Left breast redness and pain. Neurological: No dizziness, weakness, sensory change, speech change. Endo/Heme/Allergies: No bruising or bleeding. No polydipsia. Pysch: no suicidality, no anxiety, no insomnia. All other systems reviewed and are negative. [facility] Medical History Anemia ?D64.9 - Anemia, unspecified (ICD-10) Menorrhagia ?N92.0 - Excessive and frequent menstruation with regular cycle (ICD-10) Iron deficiency anemia ?D50.9 - Iron deficiency anemia, unspecified (ICD-10) Anxiety ?F41.9 - Anxiety disorder, unspecified (ICD-10) Depression ?F32.A - Depression, unspecified (ICD-10) Surgical History No significant past surgical history Social History Narrative: SOCIAL? ? Education: associate's? ? Work: unemployed at this time, looking? ? Partner: Terrell? not , not in a relationship ? Lives with: mother and father? ? Pets: dog? ? Abuse: Denies past Safe at home with current partner ? ? ? Special Diet: Denies? ? Ok with a blood transfusion: yes? ? Culture or latter-day beliefs: denies? What is your current living situation?: I presently have a place to live Problems where you live: no known problems In the past 12 months, utilities in danger of being shut off: no In past 12 months, lack of transportation kept you from medical appts, meetings, work, or getting things needed for daily living: no How hard is it for you to pay for the very basics like food, housing, medical care, and heating: not applicable In the past 12 mos, have been you worried that your food would run out before you had money to buy more?: never true In the past 12 mos, the food you bought just didn't last and you didn't have money to buy more?: never true Smoking Status: Never smoker Do you use any of these nicotine containing products: E-Cigarettes and Vaping Products Second hand tobacco smoke exposure: No How often do you have a drink containing alcohol: never How often do you have six or more drinks on one occasion: Never AUDIT-C Alcohol total score: 0 Non-prescribed substance use: denies use How often does anyone, including family, friends and others, physically hurt you: never How often does anyone, including family, friends and others, insult or talk down to you: never How often does anyone, including family, friends and others, threaten you with harm: never How often does anyone, including family, friends and others, scream or curse at you: never Little interest or pleasure in doing things: several days Feeling down, depressed, or hopeless: several days Exam Narrative: Exam Narrative: Constitutional: Well-developed, well-nourished, no acute distress. HEENT: Normocephalic, atraumatic. Neck: Normal range of motion. Nontender. Supple. Heart: Regular. No murmurs. Normal rate. Intact distal pulses. Lungs: Clear to auscultation. No chest discomfort. No wheezes, rhonchi, or rales. Abdomen: Normal bowel sounds. Nontender. No rebound tenderness. Genitalia: Deferred. Back: No midline tenderness. Normal range of motion. Extremities: Normal range of motion. No injury. Skin: Intact. Left breast has erythema typical of mastitis. There is no palpable abscess. Neurologic: No altered sensation. No weakness. Alert and oriented. Psychiatric: No suicidality. No anxiety or depression. No insomnia. Nursing notes and vitals signs are reviewed. Const: Vital Signs, click to edit/add: Vital Signs - 24 hr 04/17/23 19:14 Temperature 98.9 F Pulse Rate [Pulse Oximeter] 100 Respiratory Rate 20 Blood Pressure [Ri ght Upper Arm] 108/68 Pulse Oximetry 100 Oxygen Delivery Me thod Room Air Course Vital Signs Vital signs: Initial Vital Signs Temperature 98.9 F 04/17/23 19:14 Temperature Source Temporal Artery Scan 04/17/23 19:14 Pulse Rate 100 04/17/23 19:14 Respiratory Rate 20 04/17/23 19:14 Blood Pressure 108/68 04/17/23 19:14 Blood Pressure Mean 81 04/17/23 19:14 Pulse Oximetry 100 04/17/23 19:14 Oxygen Delivery Method Room Air 04/17/23 19:14 Vital Signs Temperature 98.9 F 04/17/23 19:14 Pulse Rate 100 04/17/23 19:14 Respiratory Rate 20 04/17/23 19:14 Blood Pressure 108/68 04/17/23 19:14 Pulse Oximetry 100 04/17/23 19:14 Oxygen Delivery Method Room Air 04/17/23 19:14 Temperature 98.9 F 04/17/23 19:14 Pulse Rate 100 04/17/23 19:14 Respiratory Rate 20 04/17/23 19:14 Blood Pressure 108/68 04/17/23 19:14 Pulse Oximetry 100 04/17/23 19:14 Oxygen Delivery Method Room Air 04/17/23 19:14 Medical Decision Making MDM Narrative Medical decision making narrative: This patient comes in with symptoms typical of a mastitis. She does report a fever but arrives here with normal vital signs. I did discuss signs and symptoms that would indicate a need for workup for sepsis however she is not triggering those findings. The patient has an allergy to amoxicillin so she did receive an intramuscular injection of Rocephin 1 g and a prescription for Keflex 500 mg 4 times daily. I described signs and symptoms that if occurring would need further evaluation and treatment. Discharge Plan Discharge Clinical Impression: Mastitis Patient Disposition: Home w/ Parent or Adult Condition: Stable Additional Instructions: take Keflex as prescribed. Use [place] also as needed and directed for pain. Continue . Follow up with MD or return if not improving or worsening. Prescriptions: New cephalexin 500 mg capsule 500 mg PO QID 7 Days Qty: 28 0RF No Action ferrous sulfate 325 mg (65 mg iron) tablet,delayed release (DR/EC) 325 mg PO Q OTHER DAY Hold Instructions: will start again tonight docosahexaenoic acid [ DHA] 2 cap PO DAILY acetaminophen 500 mg Tablet 1,000 mg PO Q6H PRNQty: 0 0RF docusate sodium 100 mg Capsule 100 mg PO DAILY Qty: 90 2RF ibuprofen 600 mg Tablet 600 mg PO Q6H PRNQty: 60 0RF Follow Up/Referrals: Provider,Not a Local [Primary Care Provider] - Stand Alone Forms: [employer] Info Instructions
[2023-04-17] MEDS: cefTRIAXone 1 GM VIAL IM (20:05)
[2023-04-17] MEDS: LIDOCAINE 1% 5 ml (pf) 5 ML VIAL 2.1 ML IM (20:05)
[2023-04-17 20:09] VITALS: BP 110/74; PULSE 98; RESP 20; TEMP 37.2; O2SAT 100
== END 2023-04-17 20:11 | disposition home or self-care (01) ==
LOC: ED 20:10
PROVIDERS: Emergency Provider Emergency Medicine Emergency Medical Services
DX: N61.0 Mastitis without abscess (principal)
CPT/HCPCS: 96372; 99283; 99284; J0696

== ENCOUNTER 2023-04-21 11:06 | Outpatient (CLI) | payer BC, SELFPAY ==
--- NOTE | 2023-04-21 17:00 | P.LACCB_ITS ---
Consult Note - Mom Date of Visit Date of visit: 04/21/23 residential property consultant: Milly Upton Visit Code: Visit Patient's Information Phone number: [phone] : 1 Para: 1 Allergies amoxicillin Allergy (Intermediate, Verified 04/22/23 12:34) Hives Mother's Medical History: Medical History (Updated 04/17/23 @ 20:04 by Freeman Koehler MD) Anxiety ?F41.9 - Anxiety disorder, unspecified (ICD-10) Depression ?F32.A - Depression, unspecified (ICD-10) Delivery Information Delivery type: Vaginal Weeks Gestation: 38.4 Gestational Age: AGA Weight: 3.108 kg Discharge Weight: 2.97 kg Baby's Information Baby's Age at Visit: 12 days Baby's Provider or Clinic: Dr. Ureña Jaundice: No Reason for Consult Reason for Consult: painful latch, mom with hx of mastitis Past Experience Past Experience: No Current Frequency of Day Feedings: about every 3 - 4 hours around the clock, cluster feeding around midnight Suck: strong Latch: wide Length of Time: 20 - 30 minutes total Pumping Pumping: Yes (not consistently) Quantity Pumped: 2 - 3 oz each time Supplementing EMB Supplement: Yes (not regularly) Formula Supplement: No Baby Elimination Number of Wet Diapers a Day: 7 - 8 times/day Number of BM a Day: 4 - 5 times/day, yellow and seedy Breast/Nipple Condition Breast Information: WNL Maternal Nipple Condition - Left: Common Nipple and Cracking/ Fissures Maternal Nipple Condition - Right: Common Nipple Sore Nipples: Yes Onsite Pre-Feed weight: 3.108 kg Post-Feed weight: 3.16 kg Milk Transferred (mL): 52 Assessments/Interventions Assessments/Interventions: Met with mom and this now 12 day old ex- term AGA baby for consult. Spoke with her on 04/17 and she had been seen in the ER on for mastitis. She was prescribed a 7 day course of cephalexin 500 mg, 4 times/day. She reports she started the medication on 04/17 and is feeling better overall (did not try the breast gymnastics or massage, see phone encounter note). She reports her left nipple is still damaged however and nursing is very painful. Baby is nursing every 3 - 4 hours for 20 - 30 minutes total. Mom sometimes offers both sides but it's not with every feeding. She was pumping more often to relieve the discomfort from the mastitis before she went into the ER and reports getting 2 - 3 oz total each time. States she saw blood in a few of the bottles, when we spoke on 04/17 we reviewed that it could be b/c her nipples were damaged. She was advised to have the pump at the lowest comfortable suction setting and that it was safe to give baby this milk. She hasn't really pumped since then. Breasts WNL- full but not engorged, symmetrical with rounded lower quadrants, intramammary distance is < 1.5 inches. Nipples are everted and don't flatten or retract on compression. No damage noted on the right nipple, but the left has Stage II tissue damage. Baby has gained 14 grams/day since her last visit on 04/14 and she's now only 3 grams below BW at 12 DOL. Mom denies any caput/cephalohematoma at delivery, but her head is still fairly molded. Per mom she has equal ROM when turning her head and moving her extremities. Her palate is high. Her upper frenulum is tight as the gums radha when the upper lip is flanged. She has a very strong suck on a finger but the tongue does not extend past the gum line easily and there's quite a bit of canoeing when the tongue lateralizes. Was unable to lift the tongue to observe the lower frenulum and she didn't lift the tongue high enough to see the frenulum when crying. Mom latched baby to the left side and was in a lot of pain, there wasn't much improvement when she was verbally coached to have baby nipple to nose and bring her on quickly when she opens wide. She was teary and discouraged so we discussed a nipple shield. When this was applied, after a few attempts she was able to latch baby more comfortably. Baby wasn't very aggressive on this side but with stimulation nursed for about 10 minutes before falling asleep and coming off the breast (milk was not seen in the shield). Mom offered the right side without the shield and after a few attempts was able to get a comfortable latch. Baby nursed another 5 - 10 minutes before falling asleep. She was weighed and had transferred 52 ml so mom offered the left side one more time but baby wasn't interested. Mom was shown a few exercises to hopefully help baby to extend her tongue over the gum line (tug of war). Plan: 1. Mom will continue to practice nursing ALD or at least every three hours, working to get as deep a latch as possible and offering both sides at each fee ding. Suggested she use the nipple shield on the left side for the next few days to give her nipple a chance to heal (reviewed the importance of seeing milk in the shield after baby had finished). l 2. Pump to comfort (or use her [place]) if needed after baby has finished nursing. Suggested that if she didn't see milk in the shield after a feeding session to pump for 10 - 15 minutes. We reviewed the importance of having the vacuum pressure at the highest comfortable setting. 3. Baby is at BW at 12 days, but she gained a little less than normal each day. Suggested that if she seems hungry shortly after a feeding mom could offer the breast again or offer some of her pumped milk. 4. Suggested mom practice the tongue exercise with every daytime diaper change. 5. Baby has her 2 week WCC on 04/27, will f/u by phone after that to see how things are going. 6. E-mailed ER physician to see if he would extend the prescription for cephalexin to 10 - 14 days as recommended by the ABM (Rubina Yoo CNM will send in a script for another 7 days, I will notify patient). Meds Home Medications and Allergies Home Medications Medication Instructions Recorded Confirmed Type docosahexaenoic acid 2 cap PO DAILY 10/19/22 04/22/23 History ferrous sulfate 325 mg (65 mg 325 mg PO Q OTHER DAY 11/11/22 04/22/23 History iron) tablet,delayed release Allergies Allergy/AdvReac Type Severity Reaction Status Date / Time amoxicillin Allergy Intermediate Hives Verified 04/22/23 12:34
== END 2023-04-21 11:07 | disposition home or self-care (01) ==
PROVIDERS: Visit Provider Advanced Practice Midwife
DX: O91.23 Nonpurulent mastitis associated with lactation (principal)
CPT/HCPCS: G0463

== ENCOUNTER 2023-05-20 11:17 | Outpatient (CLI) | payer BC, SELFPAY ==
--- NOTE | 2023-05-20 11:30 | US_ITS ---
Patient: NEHEMIAS STANFORD Facility:?[facility] Patient ID:?[id number] Site Patient ID:?[id number]. Site :?[id number] Study:?US-Pelvis PELVIS TA & TV-05/20/2023 12:03:59 PM Ordering Physician:?KYLE HAILE CNM Final Report: INDICATION: Bleeding 6 weeks post . TECHNIQUE: Transabdominal and transvaginal pelvic ultrasound. FINDINGS: Uterus is anteverted and measures 8.9 x 4.3 x 7.4 cm. Endometrial stripe thickness is 7 mm. Mild endometrial heterogeneity in the lower uterine segment. No color Doppler flow. Both ovaries appear normal and have normal color flow. Small amount of pelvic free fluid. No adnexal mass. IMPRESSION: No specific evidence for retained products of conception. Dictated by Benson Cortez MD @ 05/21/2023 9:29:26 AM Signed by:?Benson Cortez MD @05/21/2023 9:29:26 AM (Electronic Signature)
== END 2023-05-20 11:18 | disposition home or self-care (01) ==
LOC: US 11:17
PROVIDERS: Visit Provider Advanced Practice Midwife
DX: O72.1 Other immediate postpartum hemorrhage (principal)
CPT/HCPCS: 76830; 76856

== ENCOUNTER 2023-10-22 08:30 | Outpatient (RCR) | payer BC, SELFPAY ==
--- NOTE | 2023-07-08 09:48 | PT.OPEX ---
PT [facility] Outpatient Eval PT [facility] Outpatient Eval Start: 07/02/23 13:39 Freq: Status: Active Protocol: Document 07/02/23 13:39 ARR (Rec: 07/02/23 15:54 ARR [id number]) E-signed By Birgit Reyez DPT Physical Therapy Outpatient Evaluation Insurance Information Recert Due Date 09/30/23 Insurance Name Medicaid,Blue Cross/Blue Shield Medical Diagnosis N81.89 female genital prolapse Z39.2 encounter for routine followup Treating Diagnosis R27.8 Lack of coordination ( muscle incoordination) N94.2 vaginismus R10.2 Pelvic and perineal pain N39.41 Urge incontinence Referring MD Sandy Mckeon CNM ([facility]) Subjective Subjective -Subjective: vaginal delivery 04/09/23 ? 12 weeks . Pt having trouble ? reports everything is delayed with pushing and holding. Will have a strong urge to urinate standing up in the AM waking up ? will leak on the way. This urge can occur at any time going from transition from sit to stand. Leaks occasionally, dribble. Has been trying to do kegels and feels there?s a delayed clench and release. Will also get random sharp shooting pain through vaginal area when out and about on her feet ? can occur a few times per wk 4 -5x/week. Also notes legs will get heavy. Also notices other symptoms when walking the calves feel heavy and has to sit down. Feels comparable to post-having a Tray horse. -Urinary: --Frequency of leakage: see above --Protection worn: none --Severity of leakage: see above --Activity that causes leakage : sneezing and sit to stand --Delay of urination: can delay but difficult and may leak at times --Strain to start or stop urine stream: yes to start urine stream and fully empty. Difficulty fully emptying. --Daytime urination: 5-6x --Nocturia: 1x --Dysuria: occasional achiness after urination in vaginal area --Pressure/heaviness: feels heaviness --Triggers: running water -Bowel: 3-4x/wk, used to be daily prior to of babyt --[place] chart: Type 1-2 --Constipation: yes --Do you feel bowels fully evacuate with BM: no --Fecal leakage: no --Fecal urgency: yes --Straining with BM: yes --Pain with BM: before and during BM into abdominal area --Do you use pressure with hands to assist with BM: no --Flatus incontinence: no, but does hurt at times --Abdominal/rectal pain or symptoms: yes as above --Do you take bowel supplements: stopped stool softener, had to restart recently due --Fiber intake: no idea -Sexual: prior to getting did have pain with intercourse. Worse pain during . Pain with insertion and deeper thrusting . No intercourse post-. was not planned, doesn?t plan on having intercourse for a long time -Menstrual history: did have period return , not regular. Painful and heavy bleeding ? was told d/t iron deficiency. -: G/P 1/1Labial laceration needing stitches. 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 -Lifting contraction: visible lift -Bulge: bulge ? Tenderness/pain to palpation/ tone: -Layer 1:?ischiocavernosus / bulbospongiousus / superficial transverse perineal -Layer 2: External urtethral sphincter / deep transverse perineal / compressor urethra / sphincter urethrovaginalis -Layer 3: puborectalis / pubococcygeus / iliococcygeus / coccygeus Significant TTP, allodynia throughout PFM layers 1-3. Did not assess each area due to level of irritability of tissues, assumed all areas to have elevated sensitivity ? Strength ( R / C / L): -Power (MMT): did not formally assess due to level of pain with palpation Other: -With deep breathing noting increased PFM relaxation Assessment Assessment/Impression Pt is a 23 y/o female who is ~ 12 wks vaginal delivery with labial laceration on 04/09/23 who presents with concerns of straining with urination, pelvic pain with activity, abdominal ache after BM. Signs and symptoms likely indicating / consistent with hypertonic PF with significant allodynia, increased tone and pain with palpation of all muscles layers 1-3 bilaterally . Did not formally palpate all areas due to level of irritability but assume each area to be painful.?Patient also has notable behavioral habits likely contributing to symptoms including current constipation, straining with urination / bowel movements, and incomplete emptying also likely contributing to the problem.?Patient is a good candidate for skilled therapy to target deficits described above.?Skilled PT intervention is necessary for use of therapeutic exercise manual therapy, neuromuscular re- education, gait training, and therapeutic activity.? Functional impairments include difficulty with: walking, voiding without pain flare. See appropriate sections of PT eval for complete list of goals and POC.?D/C plan and criteria is for pt to achieve the goals as listed below or until max rehab potential is met. Pt was agreeable with plan of care and goals established. Evaluation and internal vaginal PFM assessment/ treatment with patient consent was requested and obtained.? Plan of Care Rehabilitation Potential Good Physical Therapy Goals STG (within 6 visits) - 1)Pt will initiate HEP without increased pain/ symptoms - 2)Pt will report ability to start urine stream and fully empty without straining. - 3) Pt will report reduced tissue sensitivity in pelvic floor muscles to allow for full assessment of vaginal tissues - 4) Pt will report absent urinary urge with transition from sit to stand at least 40% of the time - LTG (within 12 visits) - 1)Pt will be indep in HEP for prison mgmt. of pain/ symptoms - 2)Pt will report ability to urinate and have bowel movement without straining to empty - 3) Pt will report improved stool type to 3-4 to improve emptying - 4) Pt will report ability to run errands, grocery shop, and play with child without pain onset. - 5) Pt will report absent urinary urge with transition from sit to stand -6) pt will report at least 80 % improvement in urinary leakage since start of therapy for improved health of vaginal tissues Treatment Plan/Direct Interventions Gait Training,Joint Mobilization,Neuromuscular Re- ed,Self-Care/Home Management, Therapeutic Activities, Therapeutic Exercises, Ultrasound Frequency/Duration 1x/wk x 12 visits within 90 dyas Patient Will Be Discharged From Therapy Skills [facility],Independent w/ HEP Evaluation Billing Untimed Code Treatment Minutes 30 Complexity Low Certification Information Initial Certification Date 07/02/23 Ending Certification Date 09/30/23 Provider Signature Shows Agreement With POC & Medical Necessity Physician Signature & Date Requested Please Sign/Date Here Physician Comment/Change : Physician NPI Number #
--- NOTE | 2023-09-24 09:33 | PT.OPDNX ---
PT [place] Outpatient Daily Note PT [facility] Outpatient Daily Note Start: 07/02/23 13:39 Freq: Status: Active Protocol: Document 09/24/23 08:31 ARR (Rec: 09/24/23 09:33 ARR [id number]) E-signed By Birgit Reyez DPT PT [facility] Daily Progress Note Visit Information Note Type Daily Note,Recert/Progress Note Visit Number [id number] Insurance Information Recert Due Date 12/23/23 Insurance Name Medicaid,Blue Cross/Blue Shield Insurance Information/Comments EVAL: 07/02/23 POC 1 x 12 (07/02/23 - 09/24/23) Medical Diagnosis N81.89 female genital prolapse Z39.2 encounter for routine followup Treating Diagnosis R27.8 Lack of coordination ( muscle incoordination) N94.2 vaginismus R10.2 Pelvic and perineal pain N39.41 Urge incontinence Referring MD Sandy Mckeon CNM ([facility]) Subjective Subjective -Pt x 10 min late -Hasn't gotten trainers yet. -No vaginal spasms or pelvic pain -Was at [facility] x 1 .5 hours - no pain or issues. -No leakage Home Exercise Home Exercise Comments OTHER: -PF check ins Access Code: [email or web address] URL: [email or web address] Date: 07/09/2023 Prepared by: Birgit Reyez Exercises - Sidelying Open Book Thoracic Lumbar Rotation and Extension - 1 x daily - 5-7 x weekly - 6-8 reps - Sidelying Diaphragmatic Breathing - 1 x daily - 5-7 x weekly - 6-8 reps - Segmental Cat Cow - 1 x daily - 5-7 x weekly - 4-6 reps - Diaphragmatic Breathing in Supported Child's Pose with Pelvic Floor Relaxation - 1 x daily - 5-7 x weekly - 2-3 min hold Objective Other/Pertinent Objective INTERNAL?EXAMINATION INTRAVAGINAL 07/02/23: -Sensation: intact to touch -Observation: WNL -Perineum: normal? -Lifting contraction: visible lift -Bulge: bulge ? Tenderness/pain to palpation/ tone: -Layer 1:?ischiocavernosus / bulbospongiousus / superficial transverse perineal -Layer 2: External urtethral sphincter / deep transverse perineal / compressor urethra / sphincter urethrovaginalis -Layer 3: puborectalis / pubococcygeus / iliococcygeus / coccygeus Significant TTP, allodynia throughout PFM layers 1-3. Did not assess each area due to level of irritability of tissues, assumed all areas to have elevated sensitivity ? Strength ( R / C / L): -Power (MMT): did not formally assess due to level of pain with palpation Other: -With deep breathing noting increased PFM relaxation EXTERNAL OBJECTIVE 07/09/23: -Movement screen: MS flexion fingertips to shins reduced mobility into TS, LS and HS. MS extension reduced TS. MS rotation WNL -SLS: able to hold 30 sec with mild pelvic drop and medial collapse. -Posture: inc'd TS kyhposis, level IC, inc'd PPT -Hip PROM: IR 40 L, 70 R // ER 90 L. 80 R -Strength: 2+ R, 3- L glut medius Other Tests: -Coordination: TA inhibition with belly drawing in -Breathing: dec?d posterior and lateral ribcage mvmt with inhalation -Myofascial palpation: Decreased connective tissue mobility with skin rolling at XXX areas -DR: negative -Flexibility: + HS 50* bilat, Patient Instructed in Risks/Benefits Yes Therapeutic Exercise Therapeutic Exercise Minutes (minutes) 25 Therapeutic Exercise: To Restore TE: Indicated for improvement Functional Status in strengthening and mobility. -Handouts with written instructions and photographs of exercises were issued to the patient for exercises to be included in HEP. Answered patient questions regarding POC, and mobility/stretches to perform if pain occurs -Cat/cow segmental x 5 reps -Bolstered child's pose x 60 sec deep breathing -Quadruped rockbacks w/ breathing x 8 reps -LTR w/breathing arms out x 6 reps -Adductor rock katherine x 8 reps ea side -Feet wide hip IR/ER x 3 reps Education: -Vaginal dilators, purpose of use and indications Manual Therapy Techniques Manual Therapy Minutes (minutes) 20 Manual Therapy Techniques MT: indicated for improving joint mobility, reducing tissue irritability, and improving range of motion. Hooklying intravaginal w/ consent: -Lower abdominal fascia release supine taking tissue to end range and hold until release -Pubovessical ligament release supine drawing fingers btw bladder and pubic bone along lateral and underneath bladder until release -Bladder mobility supine holding bladder in area of restriction until release -Uterine mobility supine treating ligaments or holding uterus in area of restriction until release -Releasing uterus from bladder supine moving hands in opposite directions targeting most restricted movement, to end range until release -STM into abdominal wall into myofascial tissue including RA , obliques -Fascial mobilizaiton to RA -Mobilization of abdominal structures in LLQ /L iliacus to improve fascial mobilty and reduce pain using bent LE fallouts and APT/PPT -Mobilization of abdominal structures in RLQ /R iliacus to improve fascial mobilty and reduce pain using bent LE fallouts and APT/PPT Treatment Minutes Timed Code Treatment Minutes 45 Total Treatment Time 45 Billing Units Manual Therapy Units 1 Therapeutic Exercise Units 2 Assessment/Impression Assessment/Impression [place] session d/t pt arriving late. 50% of session spent on spine/hip mobility and deep breathing. Does have global spine stiffness, adductor tightness, and posterior hip tightness likely contributing to PFM tension. Focus on fascial / visceral mobility of abdominal wall this date due to tone noted with TTP. Improved fascial mobility including mobility of suprapubic tissues after techniques. Encouraged pt to get more consistent with HEP and report next session Plan of Care Physical Therapy Goals STG (within 6 visits) - 1)Pt will initiate HEP without increased pain/ symptoms - 2)Pt will report ability to start urine stream and fully empty without straining. - 3) Pt will report reduced tissue sensitivity in pelvic floor muscles to allow for full assessment of vaginal tissues - 4) Pt will report absent urinary urge with transition from sit to stand at least 40% of the time - LTG (within 12 visits) - 1)Pt will be indep in HEP for manager long term care mgmt. of pain/ symptoms - 2)Pt will report ability to urinate and have bowel movement without straining to empty - 3) Pt will report improved stool type to 3-4 to improve emptying - 4) Pt will report ability to run errands, grocery shop, and play with child without pain onset. - 5) Pt will report absent urinary urge with transition from sit to stand -6) pt will report at least 80 % improvement in urinary leakage since start of therapy for improved health of vaginal tissues Daily Plan of Care Comments -Return transvaginal - vs external , continue abdominal wall STM. -Continue exercises for mobility/deep breathing Recertification Information Initial Certification Date 07/02/23 Recertification Start Date 09/25/23 Recertification Due Date 12/23/23 Reasons to Continue Skilled Therapy Pt had been seen for vaginismus, pelvic/perineal pain, urge incontinence for 8 visits from 07/02/23 to 09/24/23 during this episode of physical therapy. Focus of therapy on spine/hip mobility, deep breathing, PF lengthening. Education targeting improving bladder / bowel health as well. Also working on reducing PFM irritability/allodynia with MT techniques. Pt continues to show elevated tissue sensitivity with significant pain with light pressure. Did educate pt in benefit of vaginal trainers to assist with desensitization of tissues. Interventions including ther exercise, manual therapy, self-care, neuromuscular re-education. Pt at this time has not yet met all short/penitentiary goals and would benefit from ongoing PT at a continued frequency of 1x/week (5 visits remaining in current POC). Do anticipate needing PT beyond initial POC dates/visits beyond the total of 12. PT continue working on reducing tissue sensitivity and vaginal spasms. Rehabilitation Potential Good Continued Plan of Care and Interventions See above Provider Signature Shows Agreement With POC & Medical Necessity Physician Comment/Change Comment or Changes Physician NPI Number #
== END 2024-02-19 23:59 | disposition home or self-care (01) ==
PROVIDERS: Visit Provider Advanced Practice Midwife
DX: N81.89 Other female genital prolapse (principal); R27.8 Other lack of coordination; N94.2 Vaginismus; R10.2 Pelvic and perineal pain; N39.41 Urge incontinence; Z39.2 Encounter for routine postpartum follow-up; Z51.89 Encounter for other specified aftercare
CPT/HCPCS: 97110; 97112; 97140; 97161; 97535

== ENCOUNTER 2024-07-01 17:28 | Emergency (ER) | payer BC, SELFPAY ==
[2024-07-01 17:36] VITALS: BP 96/63; PULSE 92; RESP 16; TEMP 36.8; O2SAT 97; BMI 20.5
--- NOTE | 2024-07-01 17:50 | CRLHL7_ITS ---
For Patients: As a result of the Century Cures Act, medical imaging exams and procedure reports are released immediately into your electronic medical record. You may view this report before your referring provider. If you have questions, please contact your health care provider. INDICATION: Abdominal pain. TECHNIQUE: Multiplanar CT examination of the abdomen and pelvis was performed after the administration of 66 mL Isovue 370 intravenous contrast. COMPARISON: CT abdomen pelvis 05/17/2022. MRI abdomen 02/18/2023.. FINDINGS: Lower chest: No focal consolidation. Normal heart size. No pleural effusions or pneumothorax. Liver: Unremarkable. Gallbladder: Unremarkable. Biliary: Unremarkable. Pancreas: Within normal limits. Spleen: Unremarkable. Adrenal glands: Unremarkable. Renal/ureters/bladder: Normal in size and symmetrically enhancing. No obstructive uropathy. No hydronephrosis or obstructive urinary calculi. No suspicious renal masses. The ureters appear unremarkable. The bladder is within normal limits. Pelvis: Unremarkable uterus. No adnexal masses. Probable right corpus luteal cyst. The right ovary appears asymmetrically enlarged. Gastrointestinal: No bowel wall thickening or bowel obstruction. Normal appendix. No significant colonic diverticulosis. Mild colonic stool burden. Vasculature: No aortic aneurysm. The portal vein remains patent. No significant atherosclerotic calcifications. Lymph nodes: No pathologic lymphadenopathy by size criteria. Peritoneum: Trace pelvic free fluid, likely physiologic or reactive. No drainable fluid collections. Abdominal wall/soft tissues: Unremarkable. Bones: No acute osseous abnormalities. IMPRESSION: 1. Normal appendix. No acute appendicitis. 2. The right ovary appears asymmetrically enlarged when compared to the left, can not exclude ovarian torsion-detorsion. If clinically warranted, consider pelvic ultrasound for improved characterization. Please note that all CT scans at this facility use dose modulation, iterative reconstruction, and/or weight-based dosing when appropriate to reduce radiation dose to as low as reasonably achievable. Dictated by Saad Ramires MD @ 07/01/2024 7:42:59 PM (Electronically Signed)
--- OUTSIDE RECORDS SUMMARY | 2024-07-01 18:07 | XMS_ITS | Clinical Summary ---
Author Organization [facility] Address [address] [place] [address]. [place] [address] Care Team Providers Care Solvent Recoverer Name Role Phone Darian Shah Primary Care Provider Unavaila ble Allergies Active Allergy Reactions Criticality Noted Date Comments Amoxicillin Hives Medium 11/13/2017 Medications FLUoxetine 20 MG tablet TAKE 1 TABLET (20 MG TOTAL) BY MOUTH DAILY. 11 8 Active mometasone (ELOCON) 0.1 % creamIndication s:Rash Apply sparingly to affected area twice daily as needed for itching. Do not apply to face. 50 g 2 8 Active methylPREDNISol one (MEDROL) 4 MG tabletIndicatio ns:Amoxicillin- induced allergic rash Take 1 tablet (4 mg) by mouth See Admin Instructions follow package directions 21 tablet 8 Active clindamycin (CLEOCIN) 300 MG capsuleIndicati ons:Strep throat Take 1 capsule (300 mg) by mouth 4 times daily 40 capsule 8 Active Active Problems No known active problems Social History Tobacco Use Types Packs/Day Years Used Date Smoking Tobacco: Never Smokeless Tobacco: Never Comments Unknown Sex and Gender Information Value Date Recorded Sex Assigned at Not on file Legal Sex Female 6:39 PM CDT Gender Identity Not on file Sexual Orientation Not on file Last Filed Vital Signs Vital Sign Reading Time Taken Comments Blood Pressure 109/68 11/17/2017 4:59 PM CDT Pulse 88 11/17/2017 4:59 PM CDT Temperature 36.7 C (98.1 F) 11/17/2017 4:59 PM CDT Respiratory Rate - - Oxygen Saturation 98% 11/17/2017 4:59 PM CDT Inhaled Oxygen Concentration - - Weight 58.5 kg (129 lb) 11/17/2017 4:59 PM CDT Height - - Body Mass Index - - Plan of Treatment Not on file Insurance MEDICA CHOICE Care Teams Solvent Recoverer Relationship Specialty Start Date End Date Darian Shah PCP - General 11/11/17
--- NOTE | 2024-07-01 18:08 | ED_ITS ---
HPI - Abdominal Pain General Date Seen: 07/01/24 Chief Complaint: Abdominal Pain Stated Complaint: Lower abdominal pain, nausea Time Seen by Provider: 07/01/24 17:44 Source: patient Mode of arrival: ambulatory Limitations: no limitations History of Present Illness HPI narrative: Patient is a 24-year-old female presenting to the emergency department for right lower quadrant abdominal pain. She states the pain started yesterday and has been getting gradually worse. And has been making her nauseated but she has not vomited. She has been eating and drinking without issues. Has had a bowel movement 2 days ago typically she goes every day but has not want to strain due to the associated pain. Also states when she is urinating she has pain right lower quadrant but denies any burning of urination. States she has not been sexually active for over a year now. Denies any vaginal discharge or bleeding. Denies ever having pain like this before. Is unsure if the pain started and per iumbilical region or not. Pain is currently a 6/10 dull ache that goes up to her right upper quadrant and right flank. States the pain were intermittently become more sharp. Has not had any fevers or chills. No previous abdominal surgeries. No other concerns noted at this time. Related Data Home Medications ?Medication ?Instructions ?Recorded ?Confirmed ferrous sulfate 325 mg (65 mg 325 mg PO DAILY 11/11/22 07/01/24 iron) tablet,delayed release Previous Rx's ?Medication ?Instructions ?Recorded escitalopram oxalate 20 mg tablet 20 mg PO DAILY #90 tabs 03/23/24 Allergies Allergy/AdvReac Type Severity Reaction Status Date / Time amoxicillin Allergy Intermediate Hives Verified 07/01/24 18:49 Review of Systems Status of ROS Reports: 10 or more systems reviewed and unremarkable except as noted in History and below [facility] Medical History Kidney stone complicating ?O26.839 - related renal disease, unspecified trimester (ICD-10) ?N20.0 - Calculus of kidney (ICD-10) Abdominal pain affecting ?O26.899 - Other specified related conditions, unspecified trimester (ICD-10) ?R10.9 - Unspecified abdominal pain (ICD-10) Anemia affecting ?O99.019 - Anemia complicating , unspecified trimester (ICD-10) Anemia ?D64.9 - Anemia, unspecified (ICD-10) Menorrhagia ?N92.0 - Excessive and frequent menstruation with regular cycle (ICD-10) Iron deficiency anemia ?D50.9 - Iron deficiency anemia, unspecified (ICD-10) Anxiety ?F41.9 - Anxiety disorder, unspecified (ICD-10) Depression ?F32.A - Depression, unspecified (ICD-10) Surgical History No significant past surgical history Social History Narrative: SOCIAL? ? Education: associate's? ? Work: unemployed at this time, looking? ? Partner: Terrell? not , not in a relationship ? Lives with: mother and father? ? Pets: dog? ? Abuse: Denies past Safe at home with current partner ? ? ? Special Diet: Denies? ? Ok with a blood transfusion: yes? ? Culture or restorationist beliefs: denies? What is your current living situation?: I presently have a place to live Problems where you live: no known problems In the past 12 months, utilities in danger of being shut off: no In past 12 months, lack of transportation kept you from medical appts, meetings, work, or getting things needed for daily living: no How hard is it for you to pay for the very basics like food, housing, medical care, and heating: not applicable In the past 12 mos, have been you worried that your food would run out before you had money to buy more?: never true In the past 12 mos, the food you bought just didn't last and you didn't have money to buy more?: never true Smoking Status: Former smoker Do you use any of these nicotine containing products: E-Cigarettes and Vaping Products Second hand tobacco smoke exposure: No How often do you have a drink containing alcohol: never How often do you have six or more drinks on one occasion: Never AUDIT-C Alcohol total score: 0 Non-prescribed substance use: denies use How often does anyone, including family, friends and others, physically hurt you : never How often does anyone, including family, friends and others, insult or talk down to you: never How often does anyone, including family, friends and others, threaten you with harm: never How often does anyone, including family, friends and others, scream or curse at you: never Exam Narrative: Exam Narrative: Const: Well-nourished, Well-developed, in mild distress Eyes: PERRL, no conjunctival injection, and symmetrical lids HENT: Atraumatic external nose and ears. Moist mucous membranes. Neck: Symmetric, trachea midline, No thyromegaly. CVS: RRR, No murmurs or gallops. Peripheral pulses 2+ and equal in all extremities RESP: Unlabored respiratory effort. Clear to auscultation bilaterally. GI: Notably tenderness to the right lower quadrant with some mild tenderness to the right upper quadrant. Positive Rovsing sign. Guarding and rebound to the right lower quadrant. MSK:Extremities w/o deformity, Normal Active ROM Skin: Warm, Dry. No rashes or lesions. Neuro: Normal Muscle tone, No focal neurological deficits. Psych: Awake, Alert, & Oriented x3. Appropriate mood and affect. Const: Vital Signs, click to edit/add: Vital Signs - 24 hr 07/01/24 17:36 07/01/24 19:48 Temperature 98.2 F Pulse Rate [Pulse Oximeter] 92 69 Respiratory Rate 16 16 Blood Pressure [Ri ght Upper Arm] 96/63 101/65 Pulse Oximetry 97 97 Oxygen Delivery Me thod Room Air Room Air Course Vital Signs Vital signs: Initial Vital Signs Temperature 98.2 F 07/01/24 17:36 Temperature Source Temporal Artery Scan 07/01/24 17:36 Pulse Rate 92 07/01/24 17:36 Pulse Rhythm Regular 07/01/24 17:36 Respiratory Rate 16 07/01/24 17:36 Blood Pressure 96/63 07/01/24 17:36 Blood Pressure Mean 74 07/01/24 17:36 Blood Pressure Position Sitting 07/01/24 17:36 Pulse Oximetry 97 07/01/24 17:36 Oxygen Delivery Method Room Air 07/01/24 17:36 Vital Signs Temperature 98.2 F 07/01/24 17:36 Pulse Rate 92 07/01/24 17:36 Respiratory Rate 16 07/01/24 17:36 Blood Pressure 96/63 07/01/24 17:36 Pulse Oximetry 97 07/01/24 17:36 Oxygen Delivery Method Room Air 07/01/24 17:36 Temperature 98.2 F 07/01/24 17:36 Pulse Rate 69 07/01/24 19:48 Respiratory Rate 16 07/01/24 19:48 Blood Pressure 101/65 07/01/24 19:48 Pulse Oximetry 97 07/01/24 19:48 Oxygen Delivery Method Room Air 07/01/24 19:48 MDM - Abdominal Pain MDM Narrative Medical decision making narrative: Patient is a 24 year old female presenting to emergency department for right lower quadrant pain. 1. On my differential at this time is appendicitis. Ovarian torsion seems less likely as her description the pain does not seem to be as severe as I would expect for torsion. According to her she has not been sexually active for over years so ectopic is unlikely. She uses they will ?dripping to could be gallbladder or liver disease. This likely to be pancreatitis or diverticulitis. CT scan also have evaluate for any kidney stones that she does have some mild flank pain. Not request anything for pain or nausea at this time. Will order a CBC, CMP, lipase, urinalysis, test, CT scan with IV contrast. Lab work returned showing no acute concerning abnormalities. CT scan was done showing an ovarian cyst and trace pelvic fluid. Ovarian torsion cannot be ruled out so an ultrasound will be ordered. No signs of appendicitis. Ultrasound returned showing 3.2 cm hemorrhagic cyst in no signs of ovarian torsion. This cyst is not quite big enough for me to be concerned about intermittent torsion. There is some thickening of the endometrial stripe it is recommended for repeat ultrasound in 8-12 weeks. Patient does follow up here with [facility] for OB Gyne and she will follow-up with them. Lab Data Labs: Lab Results 07/01/24 07/01/24 Range/Units 17:55 18:00 WBC 6.89 (4.50-11.00) K/uL RBC 4.25 (4.00-5.20) m/uL Hgb 12.3 (12.0-16.0) gm/dL Hct 38.1 (33.0-51.0) % MCV 90 (80-100) fL MCH 29 (26-34) pg MCHC 32 (32-36) gm/dL RDW Coeff of Thomas 12.4 (11.5-15.5) % Plt Count 240 (140-440) K/uL Neut % (Auto) 48.6 (42.0-72.0) % Lymph % (Auto) 39.3 (20-44) % [place] % (Auto) 9.4 (0.0-11.0) % Eos % (Auto) 2.0 (0.0-7.0) % Baso % (Auto) 0.6 (0.0-3.0) % Neut # (Auto) 3.34 (1.7-7.0) K/uL Lymph # (Auto) 2.71 (0.90-2.90) K/uL Pacific # (Auto) 0.60 (0.00-0.90) K/UL Eos # (Auto) 0.14 (0.00-0.50) K/uL Baso # (Auto) 0.04 (0.00-0.30) K/uL Abs Immat Gran (auto) 0.01 (0.00-0.30) K/uL Imm/Tot Granulo (auto) 0.1 % Sodium 140 (135-149) mmol/L Potassium 3.8 (3.6-5.1) mmol/L Chloride 104 (96-114) mmol/L Carbon Dioxide 27 (20-32) mmol/L Anion Gap 9 (7-15) mEq/L BUN 14 (5-24) mg/dL Creatinine 0.6 (0.5-1.5) mg/dL Estimated Creat Clear 139.56 Estimated GFR 128 ml/min Glucose 92 (60-115) mg/dL Calcium 9.4 (8.4-10.6) mg/dL Total Bilirubin 0.4 (0.1-1.5) mg/dL AST 32 (12-35) U/L ALT 21 (4-35) U/L Alkaline Phosphatase 66 (40-150) U/L Total Protein 8.0 (6.0-8.3) g/dL Albumin 4.8 (3.3-5.0) g/dL Lipase 75 (23-300) U/L Urine Color Yellow (Yellow) Urine Appearance Clear (Clear) Urine pH 6.0 (5.0-8.5) Ur Specific [place] 1.025 (1.000-1.030) Urine Protein Negative (Negative) Urine Glucose (UA) Negative (Negative) Urine Ketones Negative (Negative) Urine Blood Negative (Negative) Urine Nitrite Negative (Negative) Urine Bilirubin Negative (Negative) Urine Urobilinogen 0.2 (0.2-1.0) Ur Leukocyte Esterase Trace A (Negative) Urine RBC 0-2 (0-2) Urine WBC 0-2 (0-5) Ur Squamous Epith Cells Few (None-Few) Urine Bacteria Few A (None) Urine HCG, Qual Negative (Negative) Imaging Data CT scan abdomen pelvis: Attestation: I have reviewed the pertinent imaging results. Radiologist's impression: 1. Normal appendix. No acute appendicitis. 2. The right ovary appears asymmetrically enlarged when compared to the left, can not exclude ovarian torsion-detorsion. If clinically warranted, consider pelvic ultrasound for improved characterization. Please note that all CT scans at this facility use dose modulation, iterative reconstruction, and/or weight-based dosing when appropriate to reduce radiation dose to as low as reasonably achievable. Dictated by Saad Ramires MD @ 07/01/2024 7:42:59 PM Transvaginal ultrasound: Attestation: I have reviewed the pertinent imaging results. Radiologist's impression: 1. No ovarian torsion. 3.2 cm right hemorrhagic cyst. 2. Thickened endometrial stripe within the fundus measuring 1.9 cm without vascular flow, possibly evolving blood products. No definite underlying lesion identified. Consider follow-up pelvic ultrasound in 8-12 weeks. Dictated by Davidson Wills MD @ 07/01/2024 8:58:40 PM Discharge Plan Discharge Clinical Impression: Hemorrhagic cyst of right ovary Patient Disposition: Home, Self-Care Condition: Stable Instructions: Ovarian Cyst (ED) Additional Instructions: You do have a hemorrhagic cyst and these typically resolve on their own. If you start becoming lightheaded or developed worsening pain you may want to be re-evaluated. I do recommend close follow-up with your OB Gyne. There was some nonspecific findings within the endometrium and radiology does recommend repeat ultrasound in 8-12 weeks. Return to emergency department for new or worsening symptoms Prescriptions: No Action ferrous sulfate 325 mg (65 mg iron) tablet,delayed release (DR/EC) 325 mg PO DAILY escitalopram oxalate 20 mg tablet 20 mg PO DAILY Qty: 90 2RF Follow Up/Referrals: Provider,Not a Local [Primary Care Provider] - Stand Alone Forms: [facility] Info Instructions
[2024-07-01 18:10] LABS: Basophils Absolute Auto 0.04 K/uL (0.00-0.30); Basophils Percent Auto 0.6 % (0.0-3.0); Eosinophils Absolute Auto 0.14 K/uL (0.00-0.50); Hematocrit 38.1 % (33.0-51.0); Hemoglobin* 12.3 gm/dL (12.0-16.0); Immature Granulocytes Abs Auto 0.01 K/uL (0.00-0.30); Immature Granulocytes Pct Auto 0.1 %; Lymphocytes Absolute Auto 2.71 K/uL (0.90-2.90); Lymphocytes Percent Auto 39.3 % (20-44); Mean Corpuscular HGB Conc 32 gm/dL (32-36); Mean Corpuscular Hemoglobin 29 pg (26-34); Mean Corpuscular Volume 90 fL (80-100); Monocytes Percent Auto 9.4 % (0.0-11.0); Neutrophils Absolute Auto 3.34 K/uL (1.7-7.0); Neutrophils Percent Auto 48.6 % (42.0-72.0); Platelet Count* 240 K/uL (140-440); RDW Coefficient of Variation % 12.4 % (11.5-15.5); Red Blood Count 4.25 m/uL (4.00-5.20); White Blood Count* 6.89 K/uL (4.50-11.00)
[2024-07-01 18:13] LABS: Appearance Urine Clear (Clear); Bilirubin Urine Negative (Negative); Blood Urine Negative (Negative); Color Urine Yellow (Yellow); Glucose Urine Negative (Negative); Ketones Urine Negative (Negative); Leukocyte Esterase Urine Trace (Negative); Nitrite Urine Negative (Negative); Protein Urine Negative (Negative); Specific Gravity Urine 1.025 (1.000-1.030); Urobilinogen Urine 0.2 (0.2-1.0)
[2024-07-01 18:18] LABS: Slide Review Reflex No
[2024-07-01 18:22] LABS: Bacteria Urine Few; RBC Urine 0-2 (0-2); Squamous Epithelial Cell Urine Few (None-Few); WBC Urine 0-2 (0-5)
[2024-07-01 18:23] LABS: Albumin* 4.8 g/dL (3.3-5.0); Chloride* 104 mmol/L (96-114); Potassium* 3.8 mmol/L (3.6-5.1); Sodium* 140 mmol/L (135-149)
[2024-07-01 18:26] LABS: Alanine Aminotransferase* 21 U/L (4-35); Alkaline Phosphatase* 66 U/L (40-150); Anion Gap 9 mEq/L (7-15); Aspartate Amino Transferase* 32 U/L (12-35); Bilirubin Total* 0.4 mg/dL (0.1-1.5); Blood Urea Nitrogen* 14 mg/dL (5-24); Carbon Dioxide* 27 mmol/L (20-32); Creatinine* 0.6 mg/dL (0.5-1.5); Est. Creatinine Clearance* 139.56; Estimated Glomerular Filt Rate 128 ml/min; Lipase* 75 U/L (23-300)
[2024-07-01 18:27] LABS: Calcium* 9.4 mg/dL (8.4-10.6); Glucose* 92 mg/dL (60-115)
[2024-07-01 18:42] LABS: Ur HCG Qualitative* Negative (Negative)
--- NOTE | 2024-07-01 19:46 | CRLHL7_ITS ---
For Patients: As a result of the Century Cures Act, medical imaging exams and procedure reports are released immediately into your electronic medical record. You may view this report before your referring provider. If you have questions, please contact your health care provider. INDICATION: Right lower quadrant pain. TECHNIQUE: Ultrasound pelvis transvaginal for better assessment or to better visualize the endometrium. Real-time sonographic images with spectral and color Doppler imaging of the ovaries were obtained. COMPARISON: CT abdomen and pelvis from the same day. FINDINGS: Uterus: 7.6 x 4.4 x 5.6 cm. Normal echotexture of the myometrium. No masses. Endometrium: Thickened endometrial stripe in the fundus measuring up to 1.9 cm. Right ovary measures 6.1 x 3.9 x 6.0 cm. Left ovary measures 3.3 x 1.3 x 2.1 cm. The right ovary is enlarged by 3.2 x 2.5 x 2.8 cm hemorrhagic cyst. Normal arterial and venous blood flow is demonstrated in both ovaries. Cul-de-sac: Small volume simple free fluid. IMPRESSION: 1. No ovarian torsion. 3.2 cm right hemorrhagic cyst. 2. Thickened endometrial stripe within the fundus measuring 1.9 cm without vascular flow, possibly evolving blood products. No definite underlying lesion identified. Consider follow-up pelvic ultrasound in 8-12 weeks. Dictated by Davidson Wills MD @ 07/01/2024 8:58:40 PM (Electronically Signed)
[2024-07-01 19:48] VITALS: BP 101/65; PULSE 69; RESP 16; O2SAT 97
== END 2024-07-01 21:30 | disposition home or self-care (01) ==
PROVIDERS: Emergency Provider Student in an Organized Health Care Education/Training Program
DX: N83.291 Other ovarian cyst, right side (principal)
CPT/HCPCS: 36415; 74177; 76830; 80053; 81001; 81025; 83690; 85025; 87086; 93976; 99284; Q9967

== ENCOUNTER 2024-07-02 18:25 | Emergency (ER) | payer BC, SELFPAY ==
[2024-07-02 18:29] VITALS: BP 110/73; PULSE 82; RESP 18; TEMP 36.7; O2SAT 99; BMI 20.4
--- NOTE | 2024-07-02 18:41 | ED_ITS ---
HPI - General Adult General Chief complaint: Headache/Migraine Stated complaint: referred to come back for reevaluation Time Seen by Provider: 07/02/24 18:41 History of Present Illness HPI narrative: Patient presents to the emergency department complaining of a migraine. Patient states yesterday she was seen in the emergency department and they found an ovarian cyst the original pain began 2 days ago and since then she now has a severe migraine . Patient has been vomiting as well. 24-year-old woman presenting to the emergency department with concern of a migrainous headache. Seen yesterday in this emergency department with diagnosis of a right hemorrhagic ovarian cyst. She continues to have pain but this is not necessarily increased; abdominal pain is not what has brought her to the emergency department. Had been caring for her child today and developed a headache. Does have a history of diagnosed migraines. Attempted treatment with Excedrin equivalent medication and ended up vomiting. Mom notes being clammy. Otherwise has not had a fever. Shortness of breath. Question is whether not this headache is related to this apparently leaking ovarian cyst. Related Data Home Medications ?Medication ?Instructions ?Recorded ?Confirmed ferrous sulfate 325 mg (65 mg 325 mg PO DAILY 11/11/22 07/02/24 iron) tablet,delayed release Previous Rx's ?Medication ?Instructions ?Recorded escitalopram oxalate 20 mg tablet 20 mg PO DAILY #90 tabs 03/23/24 Allergies Allergy/AdvReac Type Severity Reaction Status Date / Time amoxicillin Allergy Intermediate Hives Verified 07/02/24 18:36 Review of Systems Status of ROS: Reports: 6 or more systems reviewed and unremarkable except as noted in History and below [facility] Medical History Kidney stone complicating ?O26.839 - related renal disease, unspecified trimester (ICD-10) ?N20.0 - Calculus of kidney (ICD-10) Abdominal pain affecting ?O26.899 - Other specified related conditions, unspecified trimester (ICD-10) ?R10.9 - Unspecified abdominal pain (ICD-10) Anemia affecting ?O99.019 - Anemia complicating , unspecified trimester (ICD-10) Anemia ?D64.9 - Anemia, unspecified (ICD-10) Menorrhagia ?N92.0 - Excessive and frequent menstruation with regular cycle (ICD-10) Iron deficiency anemia ?D50.9 - Iron deficiency anemia, unspecified (ICD-10) Anxiety ?F41.9 - Anxiety disorder, unspecified (ICD-10) Depression ?F32.A - Depression, unspecified (ICD-10) Surgical History No significant past surgical history Social History Narrative: SOCIAL? ? Education: associate's? ? Work: unemployed at this time, looking? ? Partner: Terrell? not , not in a relationship ? Lives with: mother and father? ? Pets: dog? ? Abuse: Denies past Safe at home with current partner ? ? ? Special Diet: Denies? ? Ok with a blood transfusion: yes? ? Culture or judaism beliefs: denies? What is your current living situation?: I presently have a place to live Problems where you live: no known problems In the past 12 months, utilities in danger of being shut off: no In past 12 months, lack of transportation kept you from medical appts, meetings, work, or getting things needed for daily living: no How hard is it for you to pay for the very basics like food, housing, medical care, and heating: not applicable In the past 12 mos, have been you worried that your food would run out before you had money to buy more?: never true In the past 12 mos, the food you bought just didn't last and you didn't have money to buy more?: never true Smoking Status: Former smoker Do you use any of these nicotine containing products: E-Cigarettes and Vaping Products Second hand tobacco smoke exposure: No How often do you have a drink containing alcohol: never How often do you have six or more drinks on one occasion: Never AUDIT-C Alcohol total score: 0 Non-prescribed substance use: denies use How often does anyone, including family, friends and others, physically hurt you : never How often does anyone, including family, friends and others, insult or talk down to you: never How often does anyone, including family, friends and others, threaten you with harm: never How often does anyone, including family, friends and others, scream or curse at you: never Exam Narrative: Exam Narrative: Pleasant. NAD. Resting curled up on her left side. Alerts quickly. Cranial nerves 2-12 to be intact. She is breathing easily. Moving all extremities without difficulty. Skin is warm and dry. Const: Vital Signs, click to edit/add: Vital Signs - 24 hr 07/02/24 18:29 Temperature 98.0 F Pulse Rate [Right Pulse Oximeter] 82 Respiratory Rate 18 Blood Pressure [Ri ght Upper Arm] 110/73 Pulse Oximetry 99 Oxygen Delivery Me thod Room Air Documenting provider has reviewed patient's vital signs: yes Course Vital Signs Vital signs: Initial Vital Signs Temperature 98.0 F 07/02/24 18:29 Temperature Source Temporal Artery Scan 07/02/24 18:29 Pulse Rate 82 07/02/24 18:29 Pulse Rhythm Regular 07/02/24 18:29 Pulse Strength 3+ Normal 07/02/24 18:29 Respiratory Rate 18 07/02/24 18:29 Blood Pressure 110/73 07/02/24 18:29 Blood Pressure Mean 85 07/02/24 18:29 Blood Pressure Position Sitting 07/02/24 18:29 Pulse Oximetry 99 07/02/24 18:29 Oxygen Delivery Method Room Air 07/02/24 18:29 Vital Signs Temperature 98.0 F 07/02/24 18:29 Pulse Rate 82 07/02/24 18:29 Respiratory Rate 18 07/02/24 18:29 Blood Pressure 110/73 07/02/24 18:29 Pulse Oximetry 99 07/02/24 18:29 Oxygen Delivery Method Room Air 07/02/24 18:29 Temperature 98.0 F 07/02/24 18:29 Pulse Rate 82 07/02/24 18:29 Respiratory Rate 18 07/02/24 18:29 Blood Pressure 110/73 07/02/24 18:29 Pulse Oximetry 99 07/02/24 18:29 Oxygen Delivery Method Room Air 07/02/24 18:29 Medications Administered Medications: Discontinued Medications Generic Name Dose Route Start Last Admin Trade Name Freq PRN Reason Stop Dose Admin Diphenhydramine HCl 25 mg 07/02/24 18:52 07/02/24 19:24 Diphenhydramine 50 Mg/Ml Inj IVP 07/02/24 18:53 25 mg ONCE ONE Administration Sodium Chloride 1,000 mls @ 1,000 mls/hr 07/02/24 18:52 07/02/24 19:22 0.9 % Sodium Chloride 1000 Ml IV 07/02/24 19:51 1,000 mls/hr .Q1H ONE Administration Ketorolac Tromethamine 30 mg 07/02/24 18:52 07/02/24 19:25 Ketorolac 30 Mg/Ml Inj IVP 07/02/24 18:53 30 mg ONCE ONE Administration Ondansetron HCl 4 mg 07/02/24 18:52 07/02/24 19:23 Ondansetron 2 Mg/Ml Inj IVP 07/02/24 18:53 4 mg ONCE ONE Administration Medical Decision Making MDM Narrative Medical decision making narrative: It would take some time for this symptoms from hemorrhagic cyst likely to resolve. Does not sound as though there is anything otherwise concerning with regard to this cyst. No fever either. Would offer treatment for her headache. Initiating IV fluids normal saline, ketorolac, diphenhydramine, Zofran. Rest in the emergency department. Actually did sleep. Does admit that she is feeling better and sounds like would be able to return home. Patient discharge plan for further discussion Medical Records Medical records reviewed: Yes I reviewed the patient's medical records Discharge Plan Discharge Clinical Impression: Migraine, Abdominal pain, Hemorrhagic ovarian cyst Patient Disposition: Home w/ Parent or Adult Condition: Improved Additional Instructions: Just go home and sleep :) Stay well-hydrated. Be seen for uncontrolled pain, intractable vomiting, associated fever. Prescriptions: No Action ferrous sulfate 325 mg (65 mg iron) tablet,delayed release (DR/EC) 325 mg PO DAILY escitalopram oxalate 20 mg tablet 20 mg PO DAILY Qty: 90 2RF Follow Up/Referrals: Provider,Not a Local [Primary Care Provider] - Stand Alone Forms: iRx Reminder Info Instructions
[2024-07-02] MEDS: 0.9 % SODIUM CHLORIDE 1000 ml 1,000 ML IV (19:22)
[2024-07-02] MEDS: ONDANSETRON 2 MG/ML inj 4 MG IVP (19:23)
[2024-07-02] MEDS: diphenhydrAMINE 50 MG/ML inj 25 MG IVP (19:24)
[2024-07-02] MEDS: KETOROLAC 30 MG/ML inj IVP (19:25)
--- OUTSIDE RECORDS SUMMARY | 2024-07-04 17:12 | XMS_ITS | Clinical Summary ---
Author Organization [facility] Address [address] [place] [address]. [place] [address] Care Team Providers Care Composition Teacher Name Role Phone Darian Shah Primary Care [...] on file Insurance [employer] Care Teams Composition Teacher Relationship Specialty Start Date End Date Darian Shah PCP - General 11/11/17
== END 2024-07-02 21:09 | disposition home or self-care (01) ==
PROVIDERS: Emergency Provider Family Medicine
DX: G43.909 Migraine, unspecified, not intractable, without status migrainosus (principal); R10.9 Unspecified abdominal pain; N83.201 Unspecified ovarian cyst, right side
CPT/HCPCS: 96374; 96375; 99284; J1200; J1885; J2405; J7030

== ENCOUNTER 2024-08-27 06:04 | Day surgery (SDC) | payer BC, SELFPAY ==
[2024-08-27] VITALS (7 sets, daily range): BP systolic 81–104; BP diastolic 61–69; PULSE 53–68; RESP 16; TEMP 36.6; O2SAT 97–99; BMI 19.9
[2024-08-27] MEDS: LACTATED RINGERS 1000 ML 1,000 ML 100 ML IV (06:10)
[2024-08-27] MEDS: SODIUM CHLORIDE 0.9 % (FLUSH) 10 ML SYRINGE IVF (06:30)
[2024-08-27 06:35] LABS: Ur HCG Qualitative* Negative (Negative)
[2024-08-27 06:40] LABS: Hemoglobin* 11.7 gm/dL (12.0-16.0)
--- NOTE | 2024-08-27 07:13 | W.PM.H&PU ---
History & Physical Update History & Physical Update H&P Reviewed and patient assessed: No changes noted
[2024-08-27] MEDS: BUPIVACAINE 0.5% 30 ML INJECTION (07:38)
--- NOTE | 2024-08-27 08:06 | P.ANES_ITS ---
Anesthesia Charges Start Date/Time Anesthesia Start Date: 08/27/24 Anesthesia Start Time: 07:15 Stop Date/Time Anesthesia Stop Date: 08/27/24 Anesthesia Stop Time: 08:07 Coding CPT Codes CPT Codes: ANESTH HYSTEROSCOPE/GRAPH - 60084 ([id number]) P1 - NORMAL HEALTHY PATIENT, QK - JOY LOADING MACHINE OPERATOR 2-4 CNCRNT ANES PROC, QX - BEACH LIFEGUARD SVC W/ MED DIRECTION
--- NOTE | 2024-08-27 08:06 | W.ANESCHARGE ---
Anesthesia Charges Start Date/Time Anesthesia Start Date: 08/27/24 Anesthesia Start Time: 07:15 Stop Date/Time Anesthesia Stop Date: 08/27/24 Anesthesia Stop Time: 08:07 Coding CPT Codes CPT Codes: ANESTH HYSTEROSCOPE/GRAPH - 06107 ([id number]) P1 - NORMAL HEALTHY PATIENT, QK - HANDSTITCHING MACHINE COLLAR FELLER 2-4 CNCRNT ANES PROC, QX - CARE MANAGER CNA SVC W/ MED DIRECTION
--- NOTE | 2024-08-27 08:11 | P.GYNPRC_ITS ---
Procedure Note Date of procedure: 08/27/24 Will [facility] bill your pro fee for this procedure?: Yes Pre-op diagnosis: Abnormal uterine bleeding Post-op diagnosis: Same Procedure: Hysteroscopy, dilation and curettage Anesthesia: MAC Complications: None Surgeon: Tiki Villalta MD Estimated blood loss (mL): 5 IV fluids (mL): 600 Urine Output (mL): 100 Pathology: specimen obtained, sent to pathology Condition: stable Disposition: same day Findings: Grossly normal external genitalia, speculum exam: grossly normal cervix, no gross lesions or abnormal discharge. Uterine sound 7cm. Intrauterine: bilateral cornua seen, thickened and irregular endometrial tissue in all uterine velasquez. Procedure Description: Patient was taken to the OR were MAC anesthesia was administered without difficulty. She was placed in the dorsal lithotomy position with William type stirrups. Patient was then prepared and draped in the normal sterile fashion. An exam under anesthesia as described above. A bivalved speculum was inserted in the posterior aspect of the vagina. 0.5% Marcaine was injected at 2 and 11 o'clock a total of about 5mL utilized. A single-tooth tenaculum was used to grasp the anterior lip of the cervix. The uterus was carefully sounded to 7 cm. The cervical os was sequentially dilated to accommodate the 5 mm TrueClear hysteroscope using Hegar dilators. A 5 mm 30 degree TrueClear hysteroscope was introduced under direct visualization, and the uterus was distended with normal saline. Findings as above. Soft tissue incisor blade from TrueClear hysteroscope system was introduced under direct visualization and endometrial curettings performed. Hysteroscope removed under direct visualization. Tenaculum was removed from the cervix and good hemostasis was noted at puncture sites. Patient tolerated the procedure well. Instrument and sponge counts were correct x2. The patient was awakened from MAC anesthesia and taken to the recovery room in a stable condition. The patient will go home after recovering from anesthesia and meeting all the criteria for discharge. She was given instruction regarding follow-up visit in 2 weeks at [facility] and instructions for pain medication. Fluid deficit: 70mL
--- NOTE | 2024-08-27 08:38 | P.ANES_ITS ---
Anesthesia Charges Start Date/Time Anesthesia Start Date: 08/27/24 Anesthesia Start Time: 07:15 Stop Date/Time Anesthesia Stop Date: 08/27/24 Anesthesia Stop Time: 08:07 Coding CPT Codes CPT Codes: ANESTH HYSTEROSCOPE/GRAPH - 94583 ([id number]) QK - TRUCK DRIVER SALESPERSON 2-4 CNCRNT ANES PROC, QX - CELLULAR PLASTICS CUTTER SVC W/ MD MED DIRECTION, P1 - NORMAL HEALTHY PATIENT
--- NOTE | 2024-08-27 08:38 | W.ANESCHARGE ---
Anesthesia Charges Start Date/Time Anesthesia Start Date: 08/27/24 Anesthesia Start Time: 07:15 Stop Date/Time Anesthesia Stop Date: 08/27/24 Anesthesia Stop Time: 08:07 Coding CPT Codes CPT Codes: ANESTH HYSTEROSCOPE/GRAPH - 80955 ([id number]) QK - HOSPITAL PERSONNEL DIRECTOR 2-4 CNCRNT ANES PROC, QX - LOG SORTING SUPERVISOR SVC W/ MD MED DIRECTION, P1 - NORMAL HEALTHY PATIENT
== END 2024-08-27 09:39 | disposition home or self-care (01) ==
LOC: OR 06:05
PROVIDERS: Visit Provider Obstetrics & Gynecology
PROC: 0UDB8ZZ Extraction of Endometrium, Via Natural or Artificial Opening Endoscopic (ICD-10-PCS; CPT 58558; principal; 2024-08-27 07:15)
DX: N93.8 Other specified abnormal uterine and vaginal bleeding (principal); R93.89 Abnormal findings on diagnostic imaging of other specified body structures
CPT/HCPCS: 58558; 00952; 36415; 81025; 85018; 88305; C1782; J0665; J1885; J2250; J2405; J2704; J3010; J7120

== ENCOUNTER 2025-02-06 16:58 | Emergency (ER) | payer BC, SELFPAY ==
--- OUTSIDE RECORDS SUMMARY | 2025-02-06 17:00 | XMS_ITS | Clinical Summary ---
Author Organization [facility] Address [address] [place] [address]. [place] [address] Care Team Providers Care Cs Associate Name Role Phone Alyssa Darian Hills Primary Care Provider Unavaila ble Allergies Active AllergyReactionsCriticalityNoted DateCommentsAmoxicillinHivesMedium 11/13/2017 Medications MedicationSigDispense QuantityRefillsLast FilledStart DateEnd DateStatus FLUoxetine 20 MG tablet TAKE 1 TABLET (20 MG TOTAL) BY MOUTH DAILY.11004/16/2017Active mometasone (ELOCON) 0.1 % cream Indications:RashApply sparingly to affected area twice daily as needed for itching. Do not apply to face. 50 g Active methylPREDNISolone (MEDROL) 4 MG tablet Indications:Amoxicillin-induced allergic rashTake 1 tablet (4 mg) by mouth See Admin Instructions follow package directions 21 tablet 11/17/2017Active clindamycin (CLEOCIN) 300 MG capsule Indications:Strep throatTake 1 capsule (300 mg) by mouth 4 times daily 40 capsule 11/17/2017Active Active Problems No known active problems Social History Tobacco UseTypesPacks/DayYears UsedDateSmoking Tobacco: NeverSmokeless Tobacco: NeverCommentsUnknownSex and Gender InformationValueDate RecordedSex Assigned at BirthNot on fileLegal JulGmbfro71/25/2018 6:39 PM CDTGender Identity Not on fileSexual OrientationNot on file Last Filed Vital Signs Vital SignReadingTime TakenCommentsBlood Sqttfhra579/6811/17/2017 4:59 PM CDT Ogjax821311/17/2017 4:59 PM CASYanpfvykoon52.7 ??C (98.1 ??F)11/17/2017 4:59 PM CDTRespiratory Rate--Oxygen Tzgfxhhvbh24%11/17/2017 4:59 PM CDTInhaled Oxygen Concentration--Txvbbw50.5 kg (129 lb)11/17/2017 4:59 PM CDTHeight--Body Mass Index-- Plan of Treatment Not on file Insurance Care Teams Team MemberRelationshipSpecialtyStart DateEnd Date Darian Shah PCP - General11/11/17
[2025-02-06 17:14] VITALS: BP 95/60; PULSE 94; RESP 16; TEMP 36.3; O2SAT 96; BMI 19.8
[2025-02-06 17:28] LABS: Appearance Urine Cloudy (Clear)
--- NOTE | 2025-02-06 17:52 | ED_ITS ---
HPI - General Adult General Date Seen: 02/06/25 Chief complaint: Urogenital Problems, Female Stated complaint: Kidney/bladder infection? Time Seen by Provider: 02/06/25 17:20 History of Present Illness HPI narrative: Patient is a 24-year-old here for evaluation of diffuse low back pain and urinary symptoms. She tells me she has been dealing with some urinary symptoms since the beginning of January, she treated herself with some Monistat, thought she had gotten better but symptoms have persisted. She has not had fevers, she has developed some low back pain which she says is on both sides kind of from the kidney area all the way down, and it now kind of wraps around to the front on her right side. It does hurt to move, she has not had any nausea or vomiting but does not have much of an appetite today. She has had 1 episode of intercourse, the used condom. She has not had vaginal discharge. She had a period week which was much hr manager than she is used to. She is not on any control. She has a 2-year-old daughter but is not interested in more children right now. Denies abdominal surgeries or other medical history. She was on an antidepressant but she said she quit that independently a couple of months ago. She does not smoke or drink. Related Data Previous Rx's ?Medication ?Instructions ?Recorded oxycodone 5 mg tablet 5 mg PO Q6H PRN pain #6 tabs 02/06/25 Allergies Allergy/AdvReac Type Severity Reaction Status Date / Time amoxicillin Allergy Intermediate Hives Verified 09/10/24 09:03 Review of Systems Status of ROS: Reports: 10 or more systems reviewed and unremarkable except as noted in History and below [facility] Medical History Kidney stone complicating ?O26.839 - related renal disease, unspecified trimester (ICD-10) ?N20.0 - Calculus of kidney (ICD-10) Abdominal pain affecting ?O26.899 - Other specified related conditions, unspecified trimester (ICD-10) ?R10.9 - Unspecified abdominal pain (ICD-10) Anemia affecting ?O99.019 - Anemia complicating , unspecified trimester (ICD-10) Anemia ?D64.9 - Anemia, unspecified (ICD-10) Menorrhagia ?N92.0 - Excessive and frequent menstruation with regular cycle (ICD-10) Iron deficiency anemia ?D50.9 - Iron deficiency anemia, unspecified (ICD-10) Anxiety ?F41.9 - Anxiety disorder, unspecified (ICD-10) Depression ?F32.A - Depression, unspecified (ICD-10) Surgical History No significant past surgical history Social History Narrative: SOCIAL? ? Education: associate's? ? Work: unemployed at this time, looking? ? Partner: Terrell? not , not in a relationship ? Lives with: mother and father? ? Pets: dog? ? Abuse: Denies past Safe at home with current partner ? ? ? Special Diet: Denies? ? Ok with a blood transfusion: yes? ? Culture or hinduism beliefs: denies? What is your current living situation?: I presently have a place to live Problems where you live: no known problems In the past 12 months, utilities in danger of being shut off: no In past 12 months, lack of transportation kept you from medical appts, meetings, work, or getting things needed for daily living: no How hard is it for you to pay for the very basics like food, housing, medical care, and heating: not applicable In the past 12 mos, have been you worried that your food would run out before you had money to buy more?: never true In the past 12 mos, the food you bought just didn't last and you didn't have money to buy more?: never true Smoking Status: Former smoker Do you use any of these nicotine containing products: E-Cigarettes and Vaping Products Second hand tobacco smoke exposure: No How often do you have a drink containing alcohol: never How often do you have six or more drinks on one occasion: Never AUDIT-C Alcohol total score: 0 Non-prescribed substance use: denies use Caffeine: Yes How often does anyone, including family, friends and others, physically hurt you : never How often does anyone, including family, friends and others, insult or talk down to you: never How often does anyone, including family, friends and others, threaten you with harm: never How often does anyone, including family, friends and others, scream or curse at you: never Exam Narrative: Exam Narrative: Vital signs reviewed In general, an alert, nontoxic young woman. She looks comfortable. Head: Normocephalic, atraumatic. Eyes: Sclera clear. Pupils equal and reactive. ENT: Mucous membranes moist. Neck: Supple without adenopathy. Heart: Regular rate and rhythm without murmur. Lungs: Clear. No increased work of breathing, crackles or wheezes. She does have some CVA tenderness on the right. Abdomen: Soft, nondistended. Some right upper quadrant tenderness with voluntary guarding, no rebound, abdomen is otherwise nontender including the right lower quadrant. Extremities: Well perfused, pulses intact. No significant edema. Neurologic: Alert, conversant. Speech fluent, face symmetric. Moves all extremities equally. Skin: Warm, dry well perfused. Affect: Normal. Const: Vital Signs, click to edit/add: Vital Signs - 24 hr 02/06/25 17:14 02/06/25 18:04 02/06/25 18:15 Temperature 97.4 F L Pulse Rate 79 82 Pulse Rate [Pulse Oximeter] 94 Respiratory Rate 16 Blood Pressure [Ri ght Upper Arm] 95/60 Pulse Oximetry 96 100 100 Oxygen Delivery Me thod Room Air 02/06/25 18:30 Temperature Pulse Rate 78 Pulse Rate [Pulse Oximeter] Respiratory Rate Blood Pressure [Ri ght Upper Arm] Pulse Oximetry 100 Oxygen Delivery Me thod Course Course ED Course: Patient presents with some urinary symptoms, back pain, abdominal pain, differential diagnosis is broad and would include urinary tract infection, pyelonephritis, kidney stone, appendicitis, cholecystitis, ectopic , cyst, among others. We obtained urine, urinalysis is notable for 3+ leukocyte esterase and 2+ blood, the micro is pending. I did look with the bedside ultrasound. I do not see any evidence of free-fluid in Morison's pouch, splenorenal views or pelvic views. Gallbladder is somewhat poorly visualized but I do not see obvious shadowing stones. Will place an IV, give some fluids Toradol, await lab results. Evaluation here is notable for a markedly abnormal urinalysis with greater than 100 red cells and greater than 100 white cells. She has otherwise reassuring labs with a normal white blood cell count, normal lactate, normal procalcitonin, normal creatinine. Negative test. Her presentation is not overly suggestive of kidney stone, but it does seem that she is probably developing pyelonephritis on the heels of persistent untreated UTI. I gave her dose of Rocephin here. There are no markers to suggest that she needs to stay in hospital, I have prescribed Keflex t.i.d. for 7 days, and I gave her a few oxy codone if she needs them for her back pain. Reviewed reasons to return such as high fevers, shaking chills, vomiting, or uncontrolled pain. Primary care follow-up recommended if not improving over the next few days. Vital Signs Vital signs: Initial Vital Signs Temperature 97.4 F L 02/06/25 17:14 Temperature Source Temporal Artery Scan 02/06/25 17:14 Pulse Rate 94 02/06/25 17:14 Respiratory Rate 16 02/06/25 17:14 Blood Pressure 95/60 02/06/25 17:14 Blood Pressure Mean 71 02/06/25 17:14 Blood Pressure Position Sitting 02/06/25 17:14 Pulse Oximetry 96 02/06/25 17:14 Oxygen Delivery Method Room Air 02/06/25 17:14 Vital Signs Temperature 97.4 F L 02/06/25 17:14 Pulse Rate 94 02/06/25 17:14 Respiratory Rate 16 02/06/25 17:14 Blood Pressure 95/60 02/06/25 17:14 Pulse Oximetry 96 02/06/25 17:14 Oxygen Delivery Method Room Air 02/06/25 17:14 Temperature 97.4 F L 02/06/25 17:14 Pulse Rate 78 02/06/25 18:30 Respiratory Rate 16 02/06/25 17:14 Blood Pressure 95/60 02/06/25 17:14 Pulse Oximetry 100 02/06/25 18:30 Oxygen Delivery Method Room Air 02/06/25 17:14 Medications Administered Medications: Discontinued Medications Generic Name Dose Route Start Last Admin Trade Name Freq PRN Reason Stop Dose Admin Sodium Chloride 1,000 mls @ 1,000 mls/hr 02/06/25 17:30 02/06/25 19:00 0.9 % Sodium Chloride 1000 Ml IV 02/06/25 18:29 Infused .Q1H JOSEFINA Infusion Ceftriaxone Sodium 1 gm/ 100 mls @ 200 mls/hr 02/06/25 18:18 02/06/25 19:10 Sodium Chloride IVPB 02/06/25 18:47 Infused ONCE ONE Infusion Ketorolac Tromethamine 15 mg 02/06/25 17:30 02/06/25 17:57 Ketorolac 15 Mg/Ml Inj IVP 02/06/25 17:31 15 mg ONCE ONE Administration Medical Decision Making Lab Data Labs: Lab Results 02/06/25 02/06/25 02/06/25 Range/Units 17:23 17:45 18:45 WBC 8.18 (4.50-11.00) K/uL RBC 4.10 (4.00-5.20) m/uL Hgb 12.1 (12.0-16.0) gm/dL Hct 36.0 (33.0-51.0) % MCV 88 (80-100) fL MCH 30 (26-34) pg MCHC 34 (32-36) gm/dL RDW Coeff of Thomas 12.2 (11.5-15.5) % Plt Count 249 (140-440) K/uL Neut % (Auto) 67.7 (42.0-72.0) % Lymph % (Auto) 22.5 (20-44) % [place] % (Auto) 7.5 (0.0-11.0) % Eos % (Auto) 1.8 (0.0-7.0) % Baso % (Auto) 0.4 (0.0-3.0) % Neut # (Auto) 5.54 (1.7-7.0) K/uL Lymph # (Auto) 1.84 (0.90-2.90) K/uL [place] # (Auto) 0.60 (0.00-0.90) K/UL Eos # (Auto) 0.15 (0.00-0.50) K/uL Baso # (Auto) 0.03 (0.00-0.30) K/uL Abs Immat Gran (auto) 0.01 (0.00-0.30) K/uL Imm/Tot Granulo (auto) 0.1 % Sodium 137 (135-149) mmol/L Potassium 3.7 (3.6-5.1) mmol/L Chloride 101 (96-114) mmol/L Carbon Dioxide 27 (20-32) mmol/L Anion Gap 9 (7-15) mEq/L BUN 9 (5-24) mg/dL Creatinine 0.6 (0.5-1.5) mg/dL Estimated Creat Clear 134.59 Estimated GFR 128 ml/min Glucose 97 (60-115) mg/dL Lactate 0.5 (0.5-1.9) mmol/L Calcium 9.2 (8.4-10.6) mg/dL Total Bilirubin 0.4 (0.1-1.5) mg/dL Direct Bilirubin 0.1 (0.0-0.5) mg/dL AST 26 (12-35) U/L ALT 17 (4-35) U/L Alkaline Phosphatase 56 (40-150) U/L C-Reactive Protein 1.2 H (0.5-1.0) mg/dL Total Protein 7.6 (6.0-8.3) g/dL Albumin 4.5 (3.3-5.0) g/dL Lipase 58 (23-300) U/L Procalcitonin < 0.03 L (<0.50) ng/mL Urine Color Yellow (Yellow) Urine Appearance Cloudy A (Clear) Urine pH 6.0 (5.0-8.5) Ur Specific [place] 1.015 (1.000-1.030) Urine Protein 2+ A (Negative) Urine Glucose (UA) Negative (Negative) Urine Ketones Negative (Negative) Urine Blood 2+ A (Negative) Urine Nitrite Negative (Negative) Urine Bilirubin Negative (Negative) Urine Urobilinogen 0.2 (0.2-1.0) Ur Leukocyte Esterase 3+ A (Negative) Urine RBC >100 A (0-2) Urine WBC >100 A (0-5) Ur Squamous Epith Cells None (None-Few) Urine Bacteria Few A (None) Urine HCG, Qual Negative (Negative) Discharge Plan Discharge Clinical Impression: Pyelonephritis Patient Disposition: Home, Self-Care Condition: Stable Instructions: Kidney Infection (ED) Additional Instructions: Your blood work today is all reassuring, you have findings in that urinalysis better consistent with urinary tract infection, and I suspect that you have some infection involving your kidney as well. We gave you a dose of antibiotics here and will have you continue antibiotics at home. I am also giving you a few oxycodone if you need them for more significant pain. Otherwise, you can use ibuprofen 400 mg plus or minus Tylenol 1000 mg up to 3 times a day as needed for pain. If you feel you are worsening rather than improving, if you have high fevers, shaking chills, vomiting, or severe uncontrolled pain despite treatment, return to the emergency department. Follow-up with your primary doctor if you are not gradually improving over the next few days. Prescriptions: New oxycodone 5 mg tablet 5 mg PO Q6H PRN (Reason: pain) Qty: 6 0RF Follow Up/Referrals: Fabiola Berrios CNP [Nurse Practitioner, Family Practice] Stand Alone Forms: [employer] Info Instructions
[2025-02-06 17:53] LABS: Hematocrit* 36.0 % (33.0-51.0); Hemoglobin* 12.1 gm/dL (12.0-16.0); Immature Granulocytes Abs Auto 0.01 K/uL (0.00-0.30); Immature Granulocytes Pct Auto 0.1 %; Lymphocytes Absolute Auto 1.84 K/uL (0.90-2.90); Mean Corpuscular HGB Conc 34 gm/dL (32-36); Mean Corpuscular Hemoglobin 30 pg (26-34); Mean Corpuscular Volume 88 fL (80-100); RDW Coefficient of Variation % 12.2 % (11.5-15.5); Red Blood Count* 4.10 m/uL (4.00-5.20); White Blood Count* 8.18 K/uL (4.50-11.00)
[2025-02-06 17:57] LABS: Slide Review Reflex No
[2025-02-06 18:00] LABS: Ur HCG Qualitative* Negative (Negative)
[2025-02-06 18:04] VITALS: PULSE 79; O2SAT 100
[2025-02-06 18:08] LABS: Albumin* 4.5 g/dL (3.3-5.0); Chloride* 101 mmol/L (96-114); Potassium* 3.7 mmol/L (3.6-5.1); Sodium* 137 mmol/L (135-149)
[2025-02-06 18:11] LABS: Alanine Aminotransferase* 17 U/L (4-35); Alkaline Phosphatase* 56 U/L (40-150); Anion Gap 9 mEq/L (7-15); Aspartate Amino Transferase* 26 U/L (12-35); Bilirubin Direct* 0.1 mg/dL (0.0-0.5); Bilirubin Total* 0.4 mg/dL (0.1-1.5); Blood Urea Nitrogen* 9 mg/dL (5-24); Calcium* 9.2 mg/dL (8.4-10.6); Carbon Dioxide* 27 mmol/L (20-32); Creatinine* 0.6 mg/dL (0.5-1.5); Est. Creatinine Clearance* 134.59; Estimated Glomerular Filt Rate 128 ml/min; Glucose* 97 mg/dL (60-115); Total Protein* 7.6 g/dL (6.0-8.3)
[2025-02-06 18:15] VITALS: PULSE 82; O2SAT 100
[2025-02-06] MEDS: cefTRIAXone 1 GM in 0.9 % SODIUM CHLORIDE Mini-bag 100 ML IVPB (18:27)
[2025-02-06 18:30] VITALS: PULSE 78; O2SAT 100
[2025-02-06 18:54] LABS: Lactate Sepsis w/Reflex* 0.5 mmol/L (0.5-1.9)
[2025-02-06 19:34] LABS: Procalcitonin* < 0.03 ng/mL (<0.50)
== END 2025-02-06 19:26 | disposition home or self-care (01) ==
PROVIDERS: Emergency Provider Emergency Medicine
DX: N10 Acute pyelonephritis (principal); Z32.02 Encounter for pregnancy test, result negative
CPT/HCPCS: 36415; 80048; 80076; 81001; 81025; 83605; 83690; 84145; 85025; 86140; 87086; 96361; 96365; 96375; 99284; 99285; J0696; J1885; J7030